=== PATIENT | male | born 1970 | race Caucasian/White ===

== ENCOUNTER 2019-08-17 07:09 | Outpatient (CLI) | payer OTHER, MEDICAID, SELFPAY ==
--- NOTE | ~2019-08-17 | CT_ITS ---
EXAMINATION: CT soft tissue neck chest w DATE: 08/17/2019 07:55 INDICATION: Small lymphocytic lymphoma. TECHNIQUE: Computed tomography (CT) of the neck was performed with 75 mL Omnipaque-350 intravenous co ntrast. Automated exposure control and iterative reconstruction technique were employed. The dose-tye gth product was 924.78 mGy-cm. COMPARISON: CT chest 02/06/2019, 10/07/16, PET/CT 10/13/2018 FINDINGS: NECK CT: There are no pathologically enlarged lymph nodes. There is plaque in the proximal internal c arotid arteries with 0% stenosis relative to normal distal artery lumen diameters. There is mild muco haritha thickening in the paranasal sinuses. There is extensive dental disease. There is mild cervical sp ondylosis. CHEST CT: There is mild emphysema. There is mild atelectasis bilaterally. No pleural effusion. The he art size is normal. No pericardial effusion. Again seen are 3 hyperenhancing masses in the liver lluvia uring up to 2.7 cm, stable from 02/06/19, likely benign. A right axillary lymph node measures 1.8 x 2. 3 cm that previously measured 3.2 x 1.6 cm. There is mild thoracic spondylosis. IMPRESSION: 1. Mildly enlarged right axillary lymph node with interval improvement, consistent with lymphoma. 2. Extensive dental disease. Reviewed, dictated and finalized at location A. R ADJUSTER IMPRESSION: 1. Mildly enlarged right axillary lymph node with interval improvement, consist ent with lymphoma. 2. Extensive dental disease.
== END 2019-08-17 07:10 | disposition home or self-care (01) ==
PROVIDERS: PCP Internal Medicine; Visit Provider Internal Medicine Hematology & Oncology
DX: C83.00 Small cell B-cell lymphoma, unspecified site (principal); K08.9 Disorder of teeth and supporting structures, unspecified
CPT/HCPCS: 70491; 71260; Q9967

== ENCOUNTER 2019-08-30 12:51 | Outpatient (CLI) | payer OTHER, MEDICAID, SELFPAY ==
[2019-08-30 13:12] LABS: Basophils Absolute Auto 0.2 K/mm3 (0.0-0.1); Basophils Percent Auto 0.7 % (0.2-1.2); Eosinophils Absolute Auto 0.2 K/mm3 (0-0.3); Eosinophils Percent Auto 0.8 % (0-4.4); Hematocrit 42.1 % (42.0-52.0); Hemoglobin 13.7 g/dL (14.0-18.0); Immature Granulocyte Absolute 0.04 K/mm3 (0.00-0.031); Immature Granulocyte Percent A 0.2 % (0-0.5); Lymphocytes Absolute Auto 19.06 K/mm3 (0.9-3.2); Lymphocytes Percent Auto 84.9 % (18.3-44.2); Mean Corpuscular HGB Conc 32.5 g/dl (32-36); Mean Corpuscular Hemoglobin 30.6 pg (26-34); Mean Platelet Volume 10.1 fl (7.4-10.4); Monocytes Absolute Auto 0.6 K/mm3 (0.1-0.6); Monocytes Percent Auto 2.4 % (2.6-8.5); Neutrophils Absolute Auto 2.5 K/mm3 (1.3-6.7); Platelet Count Result 153 k/mm3 (150-375); Red Blood Count 4.48 M/mm3 (4.6-6.20); Red Cell Distribution Width 14.3 % (11.5-14.5); White Blood Count 22.5 K/mm3 (4.5-10.0)
[2019-08-30 13:16] LABS: Blood Urea Nitrogen 23 mg/dL (8-26); Carbon Dioxide 29 mmol/L (22-30); Chloride 103 mmol/L (98-109); Estimated Glomerular Filt Rate 58; Glucose 76 mg/dL (70-105); Potassium 4.3 mmol/L (3.5-4.9); Sodium 141 mmol/L (138-146)
[2019-08-30 13:18] LABS: Atypical Lymphocytes Present; Platelet Estimate Adequate (Adequate)
[2019-08-30 16:56] LABS: Alanine Aminotransferase 12 U/L (4-50); Albumin Level 3.7 g/dL (3.5-5.1); Alkaline Phosphatase 64 U/L (38-126); Aspartate Amino Transferase 13 U/L (17-59); Bilirubin,Total 0.2 mg/dL (0.2-1.3); Blood Urea Nitrogen 24 mg/dL (9-20); Carbon Dioxide 29 mmol/L (22-30); Chloride 101 mmol/L (98-107); Estimated Glomerular Filt Rate > 60; Glucose 77 mg/dL (75-110); Lactate Dehydrogenase 307 U/L (313-618); Potassium 4.5 mmol/L (3.4-5.0); Sodium 140 mmol/L (137-145)
== END 2019-08-30 12:52 | disposition home or self-care (01) ==
LOC: ANHLAB 12:55
PROVIDERS: PCP Internal Medicine; Visit Provider Internal Medicine Hematology & Oncology
DX: C83.00 Small cell B-cell lymphoma, unspecified site (principal)
CPT/HCPCS: 36415; 80048; 80053; 83615; 85025

== ENCOUNTER 2019-12-29 11:13 | Outpatient (CLI) | payer OTHER, MEDICAID, SELFPAY ==
[2019-12-29 11:28] LABS: Basophils Percent Auto 0.1 % (0.2-1.2); Eosinophils Absolute Auto 0.2 K/mm3 (0-0.3); Eosinophils Percent Auto 0.4 % (0-4.4); Hematocrit 43.3 % (42.0-52.0); Hemoglobin 14.1 g/dL (14.0-18.0); Immature Granulocyte Absolute 0.08 K/mm3 (0.00-0.031); Immature Granulocyte Percent A 0.2 % (0-0.5); Lymphocytes Absolute Auto 39.79 K/mm3 (0.9-3.2); Lymphocytes Percent Auto 87.6 % (18.3-44.2); Mean Corpuscular HGB Conc 32.6 g/dl (32-36); Mean Corpuscular Hemoglobin 31.1 pg (26-34); Mean Corpuscular Volume 95.4 fl (80-100); Mean Platelet Volume 10.6 fl (7.4-10.4); Monocytes Absolute Auto 0.6 K/mm3 (0.1-0.6); Monocytes Percent Auto 1.3 % (2.6-8.5); Neutrophils Absolute Auto 4.8 K/mm3 (1.3-6.7); Neutrophils Percent Auto 10.4 % (45.5-73.1); Platelet Count Result 141 k/mm3 (150-375); Red Blood Count 4.54 M/mm3 (4.6-6.20); White Blood Count 45.4 K/mm3 (4.5-10.0)
[2019-12-29 11:35] LABS: Atypical Lymphocytes Present
[2019-12-29 11:37] LABS: Blood Urea Nitrogen 21 mg/dL (8-26); Carbon Dioxide 23 mmol/L (22-30); Chloride 103 mmol/L (98-109); Estimated Glomerular Filt Rate > 60; Glucose 102 mg/dL (70-105); Potassium 4.1 mmol/L (3.5-4.9); Sodium 137 mmol/L (138-146)
[2019-12-29 16:52] LABS: Alanine Aminotransferase 13 U/L (4-50); Albumin Level 3.8 g/dL (3.5-5.1); Alkaline Phosphatase 67 U/L (38-126); Aspartate Amino Transferase 17 U/L (17-59); Bilirubin,Total 0.4 mg/dL (0.2-1.3); Blood Urea Nitrogen 22 mg/dL (9-20); Calcium 8.8 mg/dL (8.4-10.2); Carbon Dioxide 25 mmol/L (22-30); Chloride 104 mmol/L (98-107); Estimated Glomerular Filt Rate > 60; Glucose 106 mg/dL (75-110); Lactate Dehydrogenase 341 U/L (313-618); Potassium 4.3 mmol/L (3.4-5.0); Sodium 135 mmol/L (137-145)
== END 2019-12-29 11:14 | disposition home or self-care (01) ==
PROVIDERS: PCP Internal Medicine; Visit Provider Internal Medicine Hematology & Oncology
DX: C83.00 Small cell B-cell lymphoma, unspecified site (principal)
CPT/HCPCS: 36415; 80048; 80053; 83615; 85025

== ENCOUNTER 2020-01-13 14:47 | Emergency (ER) | payer OTHER, MEDICAID, SELFPAY ==
[2020-01-13 15:09] VITALS: BP 125/75; PULSE 82; RESP 17; TEMP 36.8; O2SAT 99
[2020-01-13 15:24] LABS: Add Urine Microscopic? YES; Appearance Urine Cloudy (Clear); Bilirubin Urine 3+ (Negative); Blood Urine 3+ (Negative); Glucose Urine UA Negative (Negative); Ketones Urine 1+ (Negative); Leukocyte Esterase Ur 2+ LEU/UL (Negative); Nitrate Urine Positive (Negative); Protein Urine 3+ (Negative); Specific Grav Ur 1.025 (1.010-1.020); pH Urine 6.5 (5.0-8.0)
--- NOTE | 2020-01-13 15:34 | ED.GENADULT ---
HPI - General Adult General Chief complaint: Urogenital-Male Stated complaint: blood in urine History of Present Illness HPI narrative: Taras is a 49M with a PMH of MS, non-hodgkins lymphoma and HTN that presented to clinic with gross hematuria that began this morning. He denies dysuria, flank pain, fevers, chills, N/V/D and SOB. Related Data Home Medications Medication Instructions Recorded Confirmed allopurinol 300 mg PO DAILY 01/13/20 01/13/20 ibrutinib [Imbruvica] 420 mg PO DAILY 01/13/20 01/13/20 lisinopril-hydrochlorothiazide 1 tablet PO DAILY 01/13/20 01/13/20 sildenafil (pulm.hypertension) 20 mg PO DAILY 01/13/20 01/13/20 Allergies Allergy/AdvReac Type Severity Reaction Status Date / Time Penicillins Allergy Intermediate Verified 11/04/17 15:33 Review of Systems Constitutional: Constitutional: Denies chills, Denies fever(s) and Denies weakness Eyes: Eyes: Reports no additional eye complaints ENT: Reports system reviewed and no additional complaints, except as documented Cardiovascular: Cardiovascular: Reports no additional cardiovascular complaints Respiratory: Respiratory: Reports no additional respiratory complaints Gastrointestinal: Gastrointestinal: Reports no additional gastrointestinal complaints Genitourinary: Genitourinary: Reports as per HPI Musculoskeletal: Musculoskeletal: Reports no additional musculoskeletal complaints Integumentary/Breasts: Skin/Breast: Reports system reviewed and no additional complaints, except as docu Neurologic: Reports system reviewed and no additional complaints, except as documented Psychiatric: Psychiatric: Reports no additional psychiatric complaints Endocrine: Endocrine: Reports no additional endocrine complaints Hematologic/Lymphatic: Hematologic/Lymphatic: Reports no additional hematologic/lymphatic complaints Allergic/Immunologic: Allergic/Immunologic: Reports no additional allergic/immunologic complaints [facility] Social History Social History Smoking status: Current every day smoker Exam Const: General: no acute distress and alert Orientation/consciousness: patient oriented x3 Limitations: No altered mental status HENMT: Head: normal to inspection Eyes: Pupils: Equal, round and reactive pupils present Neck: Neck: normal visual inspection Chest: Chest palpation & inspection: normal inspection of the chest Resp: Effort & Inspection: normal respiratory effort, not labored and not tachypneic Other: Speaks in complete sentences Cardio: Rate: regular rate Other: No lower extremity edema GI: GI Palp: Yes Soft to palpation, No Tenderness to palpation present (GI) and No Guarding due to palpation present (GI) Auscultation: normal bowel sounds : General: Yes bladder normal to palpation and Yes no CVA tenderness Male General Exam: No Genital lesions present Penis: Yes normal penis Scrotum: no scrotal swelling Other: Left inguinal hernia present Back/Spine/Pelvis: Back: no CVA tenderness Skin: General skin exam: normal color Rashes: no rashes Neuro: General: patient oriented x3 and moves all extremities Extrem: General: normal to inspection Psych: Mental Status: mental status grossly normal Course Course Emergency Course: Taras was seen and evaluated. Ordered labs as below. Labs significant for WBC of 39.5 (of note this is the lowest it has been in quite some time d/t his lymphoma), mild thrombycytopenia with Plt of 143, normal coags, normal chemistries, but UA showed 3+blood, nitrates, leukocyte esterase, and urine bacteria. He was given a dose of the Levaquin in the ED as he has a penicillin allergy. He was discharged with a script for ciprofloxacin. Vital Signs Vital signs: Vital Signs Temperature 36.8 C 01/13/20 15:09 Pulse Rate 82 01/13/20 15:09 Respiratory Rate 17 01/13/20 15:09 Blood Pressure 125/75 01/13/20 15:09 Pulse Oximetry 99 06
[2020-01-13 15:36] LABS: Hematocrit 41.3 % (40.0-54.0); Hemoglobin 13.8 g/dL (14.0-18.0); Mean Corpuscular HGB Conc 33.4 g/dL (32.0-36.0); Mean Corpuscular Hemoglobin 31.4 pg (27.0-31.0); Mean Corpuscular Volume 93.9 fL (78.0-102.0); Mean Platelet Volume 10.3 fl (8.7-11.0); Platelet Count Result 143 K/mm3 (150-420); Red Cell Distribution Width 13.8 % (11.6-14.4)
[2020-01-13 15:41] LABS: RBC Urine >75 /hpf (0-2); Squamous Epithelial Cell Urine Unable to determine /hpf (Few); WBC Urine Unable to determine /hpf (0-3)
[2020-01-13 15:42] LABS: Bacteria Urine 4+ /hpf
[2020-01-13 15:43] LABS: Color Urine Brown (Yellow)
[2020-01-13 15:46] LABS: Anion Gap 9.9 mmol/L (7-16); Blood Urea Nitrogen 19 mg/dL (7-18); Calcium 8.6 mg/dL (8.5-10.1); Carbon Dioxide 27 mmol/L (21-32); Chloride 103 mmol/L (98-108); Estimated Glomerular Filt Rate 59; Glucose 77 mg/dL (70-99); Osmolality Calculated 283 mOsm/kg (285-295); Potassium 3.9 mmol/L (3.5-5.1); Sodium 136 mmol/L (136-145)
[2020-01-13 15:47] LABS: INR 1.1; Prothrombin Time 10.9 Seconds (9.64-11.0); White Blood Count 39.5 K/mm3 (4.8-10.8)
[2020-01-13 15:55] LABS: Total Cells Counted 100
[2020-01-13 15:59] LABS: Band Neutrophils Percent 0 % (0-6); Lymphocytes Absolute Manual 33.97 K/mm3 (1.1-4.5); Lymphocytes Percent Manual 86 % (18-44); Monocytes Absolute Manual 1.58 K/mm3 (0.1-0.90); Monocytes Percent Manual 4 % (3-9); Neutrophils Absolute Manual 3.95 K/mm3 (1.3-6.7); Neutrophils Percent Manual 10 % (46-73); Platelet Estimate Adequate (Adequate)
[2020-01-13 16:00] LABS: Atypical Lymphocytes Present
[2020-01-13 17:50] VITALS: BP 127/80; PULSE 67; O2SAT 99
== END 2020-01-13 17:55 | disposition home or self-care (01) ==
PROVIDERS: Emergency Provider Family Medicine; PCP Internal Medicine
DX: N39.0 Urinary tract infection, site not specified (principal)
CPT/HCPCS: 36415; 80048; 81001; 85025; 85610; 87086; 96365; 99283; 99284; J1956

== ENCOUNTER 2020-03-18 19:58 | Emergency (ER) | payer OTHER, MEDICAID, SELFPAY ==
--- NOTE | 2020-03-18 20:01 | ED.SKABFB ---
HPI - Skin/Abscess/Foreign Bdy General Chief complaint: Skin/Abscess/Foreign Body Stated complaint: lump on R leg Time Seen by Provider: 03/18/20 20:01 Source: patient and RN notes reviewed Mode of arrival: ambulatory Limitations: no limitations History of Present Illness complaint: abscess/boil Onset (ago): hour(s) (12) Location: RLE (medial thigh) Severity: moderate Quality: aching and constant Pain Consistency: constant Relieving factors: none Exacerbating factors: movement Context: none Associated symptoms: denies other symptoms Treatments prior to arrival: none Related Data Home Medications Medication Instructions Recorded Confirmed allopurinol 300 mg PO DAILY 01/13/20 01/13/20 ibrutinib [Imbruvica] 420 mg PO DAILY 01/13/20 01/13/20 lisinopril-hydrochlorothiazide 1 tablet PO DAILY 01/13/20 01/13/20 sildenafil (pulm.hypertension) 20 mg PO DAILY 01/13/20 01/13/20 Allergies Allergy/AdvReac Type Severity Reaction Status Date / Time Penicillins Allergy Intermediate Verified 11/04/17 15:33 Review of Systems Review of Systems: All systems reviewed & are unremarkable except as noted in HPI and below PMFSH Past Medical History Medical History (Updated 03/18/20 @ 20:28 by Chi Murphy MD) Gout Hypertension Lymphoma Surgical History Surgical History (Updated 03/18/20 @ 20:09 by Chi Murphy MD) History of removal of Port-a-Cath Social History Social History (Updated 03/18/20 @ 20:31 by Chi Murphy MD) Smoking status: Former smoker Exam Const: General: healthy appearing and no acute distress Nutritional Appearance: well nourished Orientation/consciousness: patient oriented x3 HENMT: Head: normal to inspection Ears: external ears normal General nose exam: Normal external nose present Face and sinus: normal facial exam Mouth: Yes lip normal and Yes moist mucous membranes Eyes: Conjunctivae: conjunctivae normal Pupils: Equal, round and reactive pupils present EOM: EOMs intact bilaterally Neck: Neck: normal visual inspection Resp: Effort & Inspection: normal respiratory effort Auscultation: clear to auscultation bilaterally Cardio: Rate: regular rate Rhythm: regular rhythm GI: Auscultation: normal bowel sounds Back/Spine/Pelvis: Cervical Spine: cervical ROM normal Thoracic/Lumbar Spine: thoraco-lumbar ROM normal Skin: Lesions: lesion noted (distal medial thigh) nodule right mid upper leg size (3 cm), color with an erythematous base, consistency firm and tender Neuro: General: patient oriented x3, moves all extremities and no focal motor deficits Speech: normal speech Gait exam (Neuro): Normal gait present Extrem: General: no pedal edema Psych: Appearance: grossly normal and well kempt Mental Status: mental status grossly normal Affect: normal affect Attitude: cooperative Thought content: Yes Normal thought content present Course Course Emergency Course: I explained to the patient that the area that is hard and indurated is not organized enough for incision and drainage. Also felt there could be a a spider bite and just indurated from the venom. I will go ahead start him on some antibiotics for possible abscess. I explained that if this truly was a brown recluse spider bite nothing I do will stop its normal progression. If things become worse he should follow-up with his primary care physician. Vital Signs Vital signs: Vital Signs Temperature 37.0 C 03/18/20 20:10 Pulse Rate 87 03/18/20 20:10 Respiratory Rate 16 03/18/20 20:10 Blood Pressure 130/69 03/18/20 20:10 Pulse Oximetry 99 03/18/20 20:10 Temperature 37.0 C 03/18/20 20:10 Pulse Rate 87 03/18/20 20:10 Respiratory Rate 16 03/18/20 20:10 Blood Pressure 130/69 03/18/20 20:10 Pulse Oximetry 99 03/18/20 20:10 Discharge Plan Discharge Clinical Impression: Abscess Patient Disposition: Home, Self-Care Condition: Stable Instructions: Abscess (ED) Presc
[2020-03-18 20:10] VITALS: BP 130/69; PULSE 87; RESP 16; TEMP 37; O2SAT 99
== END 2020-03-18 20:35 | disposition home or self-care (01) ==
PROVIDERS: Emergency Provider Emergency Medicine; PCP Internal Medicine
DX: L02.415 Cutaneous abscess of right lower limb (principal)
CPT/HCPCS: 99283; A9270

== ENCOUNTER 2020-03-21 17:27 | Emergency (ER) | payer OTHER, MEDICAID, SELFPAY ==
[2020-03-21] VITALS (20 sets, daily range): BP systolic 144–171; BP diastolic 65–78; PULSE 84–109; RESP 14–26; TEMP 37.6; O2SAT 91–100
--- NOTE | ~2020-03-21 | US_ITS ---
US venous doppler LE RT DATE: 03/21/2020 18:27 INDICATION: Right leg swelling, redness, pain, warmth TECHNIQUE: Real-time and color flow imaging and Doppler analysis of the veins of the right lower extr emity COMPARISON: None FINDINGS: There is thrombus involving a superficial vein in the medial thigh area in an area of eryth des. The right greater saphenous vein is patent. There is spontaneous and phasic flow and normal augmentation and color flow signal and normal delbert kerri of the deep veins of the right lower extremity. There is a 13 x 28.5 mm lymph node in the right groin area. IMPRESSION: No deep venous thrombosis of right lower extremity Focal thrombosis involving a superficial vein in the medial thigh Reviewed, dictated and finalized at [facility]. Reviewed, dictated and finalized at location A.
--- NOTE | 2020-03-21 17:52 | ED.EXTPRO ---
HPI - Extremity Problem General Chief complaint: Extremity Problem,Nontraumatic <KAELYN Mason Last Filed: 03/21/20 19:54> Stated complaint: leg infection <KAELYN Mason Last Filed: 03/21/20 19:54> Time Seen by Provider: 03/21/20 17:48 <KAELYN Mason Last Filed: 03/21/20 19:54> Source: patient and family <KAELYN Mason Last Filed: 03/21/20 19:54> Mode of arrival: ambulatory <KAELYN Mason Last Filed: 03/21/20 19:54> Limitations: no limitations <KAELYN Mason Last Filed: 03/21/20 19:54> History of Present Illness HPI Narrative: Patient is a 50-year-old male who presents to emergency department for evaluation of red tender swollen right leg from the medial aspect of the leg just above the knee up into the groin patient notes the symptoms began Wednesday was seen at an outside hospital on Wednesday began Bactrim antibiotic on Wednesday and has had progressive redness and swelling since. Patient denies fever chills vomiting diarrhea or similar occurrence in the past. Patient on arrival to emergency department in no distress noting moderate to severe pain worse with activity and movement. <KAELYN Mason Last Filed: 03/21/20 19:54> Related Data Home medications: Home Medications Medication Instructions Recorded Confirmed allopurinol 300 mg PO DAILY 01/13/20 01/13/20 ibrutinib [Imbruvica] 420 mg PO DAILY 01/13/20 01/13/20 lisinopril-hydrochlorothiazide 1 tablet PO DAILY 01/13/20 01/13/20 sildenafil (pulm.hypertension) 20 mg PO DAILY 01/13/20 01/13/20 <KAELYN Mason Last Filed: 03/21/20 19:54> Allergies/Adverse reactions: Allergies Allergy/AdvReac Type Severity Reaction Status Date / Time Penicillins Allergy Intermediate Hives Verified 03/21/20 17:49 <KAELYN Mason Last Filed: 03/21/20 19:54> Review of Systems Review of Systems: All systems reviewed & are unremarkable except as noted in HPI and below <Jer Trinidad PA-C - Last Filed: 03/21/20 19:54> PMFSH Past Medical History Medical History: Medical History Gout Hypertension Lymphoma <Jer Trinidad PA-C - Last Filed: 03/21/20 19:54> Surgical History Surgical History: Surgical History History of removal of Port-a-Cath <Jer Trinidad PA-C - Last Filed: 03/21/20 19:54> Social History Social History: Social History Smoking status: Former smoker <Jer Trinidad PA-C - Last Filed: 03/21/20 19:54> Exam Narrative: Exam Narrative: GENERAL: Well-appearing, well-nourished, and in no acute distress. HEAD: Normocephalic, atraumatic. EYES: PERRLA and EOMI. ENT: Nares clear, no rhinorrhea or epistaxis. Mucous membranes moist. CHEST: Clear to auscultation. No respiratory distress. No wheezes rales or rhonchi HEART: Regular rate and rhythm. No murmur heard. Normal peripheral pulses. ABDOMEN: Soft, nontender, nondistended EXTREMITIES: Normal range of motion. No edema. Patient with red tender swollen firm area extending from the medial aspect of the distal thigh up to the proximal thigh on the medial aspect of the leg noncircumferential is warm to touch and is erythematous SKIN: Warm, dry, no rash. NEURO: No focal deficits. Alert and oriented x3. Neurovascularly intact. Capillary refill less than 2 seconds PSYCH: Normal mood and affect. <Jer Trinidad PA-C - Last Filed: 03/21/20 19:54> Course Course Emergency Course: Patient in the room aware of case findings treatment plan and diagnosis as well as discussion with Dr. Sanchez cardiology interventionalists who will follow the patient <Jer Trinidad PA-C - Last Filed: 03/21/20 19:54> Consultations Consultation #1: Discussed case with cardiology int
[2020-03-21 18:03] LABS: Hematocrit 45.2 % (42.0-52.0); Hemoglobin 15.1 g/dL (14.0-18.0); Mean Corpuscular HGB Conc 33.4 g/dl (32-36); Mean Corpuscular Hemoglobin 31.3 pg (26-34); Mean Corpuscular Volume 93.8 fl (80-100); Mean Platelet Volume 10.8 fl (7.4-10.4); Platelet Count Result 157 k/mm3 (150-375); Red Blood Count 4.82 M/mm3 (4.6-6.20); Red Cell Distribution Width 13.7 % (11.5-14.5); White Blood Count 35.2 K/mm3 (4.5-10.0)
[2020-03-21 18:12] LABS: Atypical Lymphocytes Present; INR 1.1; Lymphocytes Absolute Manual 23.93 K/mm3 (1.1-4.5); Monocytes Percent Manual 2 % (3-9); Neutrophils Percent Manual 30 % (46-73); Platelet Estimate Adequate (Adequate); Prothrombin Time 13.8 Seconds (11.1-14.7); Total Cells Counted 100
[2020-03-21 18:14] LABS: Lactic Acid Reflex 1.1 mmol/L (0.7-2.1)
[2020-03-21] MEDS: LACTATED RINGERS 1,000 ML 999 ML IV CONT (18:32)
[2020-03-21 18:47] LABS: Alanine Aminotransferase 10 U/L (4-50); Alkaline Phosphatase 75 U/L (38-126); Anion Gap 8 mmol/L (8-16); Aspartate Amino Transferase 13 U/L (17-59); Bilirubin,Total 0.8 mg/dL (0.2-1.3); Blood Urea Nitrogen 16 mg/dL (9-20); Calcium 8.8 mg/dL (8.4-10.2); Carbon Dioxide 24 mmol/L (22-30); Chloride 101 mmol/L (98-107); Estimated Glomerular Filt Rate 58; Glucose 118 mg/dL (75-110); Potassium 4.1 mmol/L (3.4-5.0); Sodium 133 mmol/L (137-145)
[2020-03-21 19:00] LABS: CRP 18.7 mg/dL (<1.0)
[2020-03-21] MEDS: IBUPROFEN IV 800 MG/200 ML 800 MG/200 ML BAG 400 MG IVPB (20:07)
== END 2020-03-21 21:06 | disposition home or self-care (01) ==
PROVIDERS: Emergency Medicine Emergency Medical Services; Emergency Provider Emergency Medicine; PCP Internal Medicine
DX: I80.01 Phlebitis and thrombophlebitis of superficial vessels of right lower extremity (principal); M10.9 Gout, unspecified; I10 Essential (primary) hypertension; Z87.891 Personal history of nicotine dependence; Z85.72 Personal history of non-Hodgkin lymphomas
CPT/HCPCS: 36415; 80053; 83605; 85025; 85610; 85730; 86140; 87040; 93971; 96361; 96365; 99284; A9270; J1741; J7120

== ENCOUNTER 2020-03-29 11:19 | Outpatient (CLI) | payer OTHER, MEDICAID, SELFPAY ==
[2020-03-29 11:35] LABS: Basophils Absolute Auto 0.1 K/mm3 (0.0-0.1); Basophils Percent Auto 0.1 % (0.2-1.2); Eosinophils Absolute Auto 0.2 K/mm3 (0-0.3); Eosinophils Percent Auto 0.5 % (0-4.4); Hematocrit 41.3 % (42.0-52.0); Hemoglobin 13.5 g/dL (14.0-18.0); Immature Granulocyte Percent A 0.5 % (0-0.5); Lymphocytes Absolute Auto 36.38 K/mm3 (0.9-3.2); Lymphocytes Percent Auto 83.1 % (18.3-44.2); Mean Corpuscular HGB Conc 32.7 g/dl (32-36); Mean Corpuscular Hemoglobin 30.8 pg (26-34); Mean Corpuscular Volume 94.1 fl (80-100); Monocytes Absolute Auto 0.6 K/mm3 (0.1-0.6); Monocytes Percent Auto 1.4 % (2.6-8.5); Neutrophils Absolute Auto 6.3 K/mm3 (1.3-6.7); Neutrophils Percent Auto 14.4 % (45.5-73.1); Nucleated Red Blood Cells Perc 0.1 % (0.0-0.2); Platelet Count Result 221 k/mm3 (150-375); Red Blood Count 4.39 M/mm3 (4.6-6.20); Red Cell Distribution Width 13.8 % (11.5-14.5); White Blood Count 43.8 K/mm3 (4.5-10.0)
[2020-03-29 11:39] LABS: Blood Urea Nitrogen 23 mg/dL (8-26); Carbon Dioxide 24 mmol/L (22-30); Chloride 104 mmol/L (98-109); Estimated Glomerular Filt Rate 58; Glucose 92 mg/dL (70-105); Potassium 4.1 mmol/L (3.5-4.9); Sodium 139 mmol/L (138-146)
[2020-03-29 11:42] LABS: Atypical Lymphocytes Present; Platelet Estimate Adequate (Adequate)
[2020-03-29 16:31] LABS: Alanine Aminotransferase 13 U/L (4-50); Albumin Level 3.9 g/dL (3.5-5.1); Alkaline Phosphatase 73 U/L (38-126); Anion Gap 8 mmol/L (8-16); Aspartate Amino Transferase 16 U/L (17-59); Bilirubin,Total 0.3 mg/dL (0.2-1.3); Blood Urea Nitrogen 23 mg/dL (9-20); Carbon Dioxide 24 mmol/L (22-30); Chloride 105 mmol/L (98-107); Estimated Glomerular Filt Rate > 60; Glucose 93 mg/dL (75-110); Lactate Dehydrogenase 323 U/L (313-618); Potassium 4.3 mmol/L (3.4-5.0); Sodium 137 mmol/L (137-145)
== END 2020-03-29 11:20 | disposition home or self-care (01) ==
LOC: ANHLAB 11:21
PROVIDERS: PCP Internal Medicine; Visit Provider Internal Medicine Hematology & Oncology
DX: C83.00 Small cell B-cell lymphoma, unspecified site (principal)
CPT/HCPCS: 36415; 80048; 80053; 83615; 85025

== ENCOUNTER 2020-06-28 11:09 | Outpatient (CLI) | payer OTHER, MEDICAID, SELFPAY ==
[2020-06-28 11:24] LABS: Basophils Absolute Auto 0.2 K/mm3 (0.0-0.1); Basophils Percent Auto 0.6 % (0.2-1.2); Eosinophils Absolute Auto 0.2 K/mm3 (0-0.3); Eosinophils Percent Auto 0.7 % (0-4.4); Hematocrit 44.6 % (42.0-52.0); Hemoglobin 14.7 g/dL (14.0-18.0); Immature Granulocyte Absolute 0.04 K/mm3 (0.00-0.031); Immature Granulocyte Percent A 0.1 % (0-0.5); Lymphocytes Absolute Auto 23.74 K/mm3 (0.9-3.2); Lymphocytes Percent Auto 81.8 % (18.3-44.2); Mean Corpuscular Hemoglobin 30.8 pg (26-34); Mean Corpuscular Volume 93.5 fl (80-100); Mean Platelet Volume 10.7 fl (7.4-10.4); Monocytes Absolute Auto 0.6 K/mm3 (0.1-0.6); Neutrophils Absolute Auto 4.3 K/mm3 (1.3-6.7); Neutrophils Percent Auto 14.8 % (45.5-73.1); Platelet Count Result 167 k/mm3 (150-375); Red Blood Count 4.77 M/mm3 (4.6-6.20); Red Cell Distribution Width 13.6 % (11.5-14.5)
[2020-06-28 12:45] LABS: Potassium 4.1 mmol/L (3.4-5.0)
[2020-06-28 12:48] LABS: Alanine Aminotransferase 11 U/L (4-50); Albumin Level 3.7 g/dL (3.5-5.1); Alkaline Phosphatase 68 U/L (38-126); Anion Gap 5 mmol/L (8-16); Aspartate Amino Transferase 16 U/L (17-59); Bilirubin,Total 0.4 mg/dL (0.2-1.3); Blood Urea Nitrogen 17 mg/dL (9-20); Calcium 9.2 mg/dL (8.4-10.2); Carbon Dioxide 31 mmol/L (22-30); Chloride 102 mmol/L (98-107); Estimated Glomerular Filt Rate > 60; Glucose 95 mg/dL (75-110); Lactate Dehydrogenase 330 U/L (313-618); Sodium 138 mmol/L (137-145)
[2020-06-28 12:56] LABS: Blood Urea Nitrogen 17 mg/dL (8-26); Carbon Dioxide 28 mmol/L (22-30); Chloride 102 mmol/L (98-109); Potassium 3.9 mmol/L (3.5-4.9); Sodium 139 mmol/L (138-146)
[2020-06-28 12:57] LABS: Estimated Glomerular Filt Rate > 60; Glucose 90 mg/dL (70-105)
== END 2020-06-28 11:10 | disposition home or self-care (01) ==
LOC: ANHLAB 11:12
PROVIDERS: PCP Internal Medicine; Visit Provider Internal Medicine Hematology & Oncology
DX: C83.00 Small cell B-cell lymphoma, unspecified site (principal)
CPT/HCPCS: 36415; 80048; 80053; 83615; 85025

== ENCOUNTER 2020-07-04 09:33 | Outpatient (CLI) | payer OTHER, MEDICAID, SELFPAY ==
--- NOTE | ~2020-07-04 | XR_ITS ---
LUMBAR SPINE INDICATION: Acute low back pain for 3 days TECHNIQUE: 3 views lumbar spine COMPARISON: None FINDINGS: No fracture, subluxation or dislocation. No evidence for spondylolysis or spondylolisthesi s. Vertebral bodies and disk spaces are preserved. IMPRESSION: 1: No significant abnormality of the lumbar spine identified. Reviewed, dictated and finalized at location A. SPORTATION MAINTENANCE SPECIALIST
== END 2020-07-04 09:34 | disposition home or self-care (01) ==
LOC: CHSIMG 09:36
PROVIDERS: PCP Internal Medicine; Visit Provider Internal Medicine
DX: M54.5 Low back pain (principal)
CPT/HCPCS: 72100

== ENCOUNTER 2020-07-06 08:58 | Emergency (ER) | payer OTHER, MEDICAID, SELFPAY ==
[2020-07-06 09:21] VITALS: BP 155/84; PULSE 72; RESP 16; TEMP 37; O2SAT 95
--- NOTE | 2020-07-06 09:22 | ED.GENADULT ---
HPI - General Adult General Chief complaint: Urogenital-Male Stated complaint: low back pain r side, R leg pain when urinating Source: patient Mode of arrival: ambulatory Limitations: no limitations History of Present Illness HPI narrative: Taras is a 50M with a PMH of MS, lymphoma, HTN and gout that presented to the ER with back pain. It started while urinating 6 days ago. It is a 5/10 sharp low back pain that shoots down his right leg. It is worse with flexion better with rest. He saw Dr. Krueger, his PCP who did Xrays and gave Flexeril, methylprednisolone and ketoralac which are not helping with the pain. No trauma, numbness, tingling, paralysis, weakness or loss of bowel or bladder control. No fevers or chills. No IV drug use. Related Data Home Medications Medication Instructions Recorded Confirmed allopurinol 300 mg PO DAILY 01/13/20 07/06/20 ibrutinib [Imbruvica] 420 mg PO DAILY 01/13/20 07/06/20 lisinopril-hydrochlorothiazide 1 tablet PO DAILY 01/13/20 07/06/20 ketorolac See Rx Instructions .ROUTE .COMPLEX 07/06/20 07/06/20 methylprednisolone [Medrol (Yair)] See Rx Instructions .ROUTE .COMPLEX 07/06/20 07/06/20 Allergies Allergy/AdvReac Type Severity Reaction Status Date / Time Penicillins Allergy Intermediate Hives Verified 03/21/20 17:49 Review of Systems Review of Systems: All systems reviewed & are unremarkable except as noted in HPI and below PMFSH Past Medical History Medical History (Updated 07/06/20 @ 09:35 by Jose Ramon Queen DO) Gout Hypertension Lymphoma Surgical History Surgical History History of removal of Port-a-Cath Social History Social History Smoking status: Former smoker Gender identity (if verbalized by the patient): Male Sexual Orientation (if Verbalized by the Patient): Straight or Heterosexual Exam Const: General: no acute distress and alert Orientation/consciousness: patient oriented x3 Limitations: No altered mental status HENMT: Head: normal to inspection Other: atraumatic Eyes: Conjunctivae: conjunctivae normal Pupils: Equal, round and reactive pupils present Neck: Neck: normal visual inspection Chest: Chest palpation & inspection: normal inspection of the chest Resp: Effort & Inspection: normal respiratory effort Auscultation: clear to auscultation bilaterally Cardio: Rate: regular rate Rhythm: regular rhythm GI: GI Palp: Yes Soft to palpation, No Tenderness to palpation present (GI) and No Guarding due to palpation present (GI) Back/Spine/Pelvis: Back: no CVA tenderness Skin: General skin exam: normal color Rashes: no rashes Neuro: General: patient oriented x3 and moves all extremities Other: 5/5 strength in the lower extremities in all the major joints in all planes of motion. Sensation intact in all dermatomes of the lower extremities. Extrem: General: normal to inspection and no edema Other: +straight leg test on the right with pain below the knee. Psych: Appearance: grossly normal Mental Status: mental status grossly normal Thought content: Yes Normal thought content present Course Course Emergency Course: Taras was evaluated. He refused pain medications. UA was sent off. Given he had no trauma, no loss of bowel/bladder control, no sensory deficits, and no strength deficits Cauda Equina is unlikely. Given the history and exam he most likely has a herniated disc. He was discharged to f/u with his PCP. He was told to return for any red flag symptoms. Vital Signs Vital signs: Vital Signs Temperature 98.6 F 07/06/20 09:21 Pulse Rate 72 07/06/20 09:21 Respiratory Rate 16 07/06/20 09:21 Blood Pressure 155/84 H 07/06/20 09:21 Pulse Oximetry 95 07/06/20 09:21 Temperature 98.6 F 07/06/20 09:21 Pulse Rate 72 07/06/20 09:21 Respiratory Rate 16 07/06/20 09:21 Blood Pressure 155/84 H 07/06/20 09:21
[2020-07-06 09:31] LABS: Add Urine Microscopic? YES; Appearance Urine Clear (Clear); Bilirubin Urine Negative (Negative); Blood Urine 1+ (Negative); Color Urine Yellow (Yellow); Glucose Urine UA Negative (Negative); Ketones Urine Negative (Negative); Leukocyte Esterase Ur Negative (Negative); Nitrate Urine Negative (Negative); Protein Urine Negative (Negative); Specific Grav Ur >= 1.030 (1.010-1.020); Urobilinogen Urine 0.2 mg/dL (0.2-1.0)
[2020-07-06 09:36] LABS: Squamous Epithelial Cell Urine Rare /hpf (Few); WBC Urine None seen /hpf (0-3)
[2020-07-06 09:37] LABS: Bacteria Urine Trace /hpf; Mucus Urine Few /lpf
[2020-07-06 09:58] VITALS: BP 149/88; PULSE 88; RESP 18; TEMP 36.4; O2SAT 94
== END 2020-07-06 09:59 | disposition home or self-care (01) ==
PROVIDERS: Emergency Provider Family Medicine; PCP Internal Medicine
DX: M54.5 Low back pain (principal); M54.10 Radiculopathy, site unspecified
CPT/HCPCS: 81001; 99282; 99283

== ENCOUNTER 2020-07-09 11:39 | Outpatient (CLI) | payer OTHER, MEDICAID, SELFPAY ==
--- NOTE | ~2020-07-09 | CT_ITS ---
EXAMINATION: CT abdomen pelvis wo con EXAM DATE: 07/09/2020 12:01 INDICATION: Painful Hematuria painful urination and micro hematuria, hx non Hodgkin's lymphoma. TECHNIQUE: Spiral CT of the abdomen and pelvis was performed without contrast. Axial, coronal and sag ittal images were reviewed. The dose-length product (DLP) for this examination was 315.37 mGy-cm. T he exposure was tailored according to patient size (auto mA exposure control), and iterative reconstr uction (ASIR) was used as additional dose reduction technique. There is no prior study for compariso n. FINDINGS: There is a moderate-sized left inguinal hernia containing a portion of the bladder. There i s no nephrolithiasis or hydronephrosis. The prostate is unremarkable. The bladder is unremarkable. The liver, spleen, adrenal glands and pancreas are unremarkable. Gallbladder is unremarkable. No biliary obstruction. There is no retroperitoneal or pelvic lymphadenopathy. There is mild scattere d arteriosclerotic disease. The appendix is normal. The stomach and small bowel are unremarkable. There is expected amount of c olonic stool. No free intraperitoneal gas. The heart is normal in size. There are no pericardial or pleural effusions. The lung bases are unremarkable. There are no osteoblastic or osteolytic les ions identified. IMPRESSION: 1. Moderate-sized left inguinal hernia following portion of bladder inside. Consider this as possibl e etiology for patient's symptoms. 2. No abdominal or pelvic lymphadenopathy. Reviewed, dictated and finalized at location B. EMENTATION SPECIALIST IMPRESSION: 1. Moderate-sized left inguinal hernia following portion of bladder inside. Co nsider this as possible etiology for patient's symptoms. 2. No abdominal or pelvic lymphadenopathy.
== END 2020-07-09 11:40 | disposition home or self-care (01) ==
PROVIDERS: PCP Internal Medicine; Visit Provider Internal Medicine
DX: R31.9 Hematuria, unspecified (principal)
CPT/HCPCS: 74176

== ENCOUNTER 2020-09-27 09:55 | Outpatient (CLI) | payer OTHER, MEDICAID, SELFPAY | END 2020-09-27 09:56 | disposition home or self-care (01) | LOC: CHSLAB 09:57 | PROVIDERS: PCP Nurse Practitioner Family; Visit Provider Nurse Practitioner Family | DX: J02.9 Acute pharyngitis, unspecified (principal) | CPT/HCPCS: 87880 ==

== ENCOUNTER 2020-11-08 10:38 | Outpatient (CLI) | payer OTHER, MEDICAID, SELFPAY ==
[2020-11-08 11:09] LABS: Basophils Absolute Auto 0.2 K/mm3 (0.0-0.1); Basophils Percent Auto 0.5 % (0.2-1.2); Eosinophils Absolute Auto 0.2 K/mm3 (0-0.3); Eosinophils Percent Auto 0.7 % (0-4.4); Hematocrit 47.9 % (42.0-52.0); Hemoglobin 15.7 g/dL (14.0-18.0); Immature Granulocyte Absolute 0.08 K/mm3 (0.00-0.031); Immature Granulocyte Percent A 0.2 % (0-0.5); Lymphocytes Absolute Auto 25.52 K/mm3 (0.9-3.2); Lymphocytes Percent Auto 77.8 % (18.3-44.2); Mean Corpuscular HGB Conc 32.8 g/dl (32-36); Mean Corpuscular Hemoglobin 30.8 pg (26-34); Mean Corpuscular Volume 94.1 fl (80-100); Mean Platelet Volume 10.9 fl (7.4-10.4); Monocytes Absolute Auto 0.7 K/mm3 (0.1-0.6); Monocytes Percent Auto 2.1 % (2.6-8.5); Neutrophils Absolute Auto 6.1 K/mm3 (1.3-6.7); Neutrophils Percent Auto 18.7 % (45.5-73.1); Platelet Count Result 153 k/mm3 (150-375); Red Blood Count 5.09 M/mm3 (4.6-6.20); Red Cell Distribution Width 13.9 % (11.5-14.5); White Blood Count 32.8 K/mm3 (4.5-10.0)
[2020-11-08 11:13] LABS: Blood Urea Nitrogen 20 mg/dL (8-26); Carbon Dioxide 29 mmol/L (22-30); Chloride 101 mmol/L (98-109); Estimated Glomerular Filt Rate 58; Glucose 87 mg/dL (70-105); Potassium 4.3 mmol/L (3.5-4.9); Sodium 138 mmol/L (138-146)
[2020-11-08 11:13] LABS: Atypical Lymphocytes Present; Platelet Estimate Adequate (Adequate)
[2020-11-08 14:27] LABS: Alanine Aminotransferase 14 U/L (4-50); Albumin Level 4.1 g/dL (3.5-5.1); Alkaline Phosphatase 62 U/L (38-126); Anion Gap 4 mmol/L (8-16); Aspartate Amino Transferase 18 U/L (17-59); Bilirubin,Total 0.4 mg/dL (0.2-1.3); Blood Urea Nitrogen 20 mg/dL (9-20); Calcium 9.4 mg/dL (8.4-10.2); Carbon Dioxide 30 mmol/L (22-30); Chloride 103 mmol/L (98-107); Estimated Glomerular Filt Rate > 60; Glucose 89 mg/dL (75-110); Potassium 4.5 mmol/L (3.4-5.0); Sodium 137 mmol/L (137-145)
== END 2020-11-08 10:39 | disposition home or self-care (01) ==
LOC: ANHLAB 10:40
PROVIDERS: PCP Nurse Practitioner Family; Visit Provider Internal Medicine Hematology & Oncology
DX: C83.00 Small cell B-cell lymphoma, unspecified site (principal)
CPT/HCPCS: 36415; 80048; 80053; 85025

== ENCOUNTER 2020-12-18 16:05 | Outpatient (CLI) | payer OTHER, MEDICAID, SELFPAY ==
--- NOTE | ~2020-12-18 | XR_ITS ---
EXAMINATION: XR shoulder RT min 2V DATE: 12/18/2020 16:31 INDICATION: Right shoulder pain. TECHNIQUE: 5 views of right shoulder were obtained. COMPARISON: None. FINDINGS: Bone alignment is normal. No fracture. Glenohumeral joint is normal. There is severe acromi oclavicular joint osteoarthritis. IMPRESSION: 1. Severe right acromioclavicular joint osteoarthritis. Reviewed, dictated and finalized at location A.
== END 2020-12-18 16:06 | disposition home or self-care (01) ==
LOC: CHSIMG 16:08
PROVIDERS: PCP Internal Medicine; Visit Provider Internal Medicine
DX: M25.511 Pain in right shoulder (principal); M19.011 Primary osteoarthritis, right shoulder
CPT/HCPCS: 73030

== ENCOUNTER 2021-05-09 09:52 | Outpatient (CLI) | payer OTHER, MEDICAID, SELFPAY ==
[2021-05-09 10:06] LABS: Basophils Absolute Auto 0.2 K/mm3 (0.0-0.1); Basophils Percent Auto 0.6 % (0.2-1.2); Eosinophils Absolute Auto 0.2 K/mm3 (0-0.3); Eosinophils Percent Auto 0.6 % (0-4.4); Hematocrit 46.4 % (42.0-52.0); Hemoglobin 15.1 g/dL (14.0-18.0); Immature Granulocyte Absolute 0.06 K/mm3 (0.00-0.031); Immature Granulocyte Percent A 0.2 % (0-0.5); Lymphocytes Absolute Auto 23.47 K/mm3 (0.9-3.2); Lymphocytes Percent Auto 79.7 % (18.3-44.2); Mean Corpuscular HGB Conc 32.5 g/dl (32-36); Mean Corpuscular Hemoglobin 30.4 pg (26-34); Mean Corpuscular Volume 93.5 fl (80-100); Mean Platelet Volume 10.7 fl (7.4-10.4); Monocytes Absolute Auto 0.7 K/mm3 (0.1-0.6); Monocytes Percent Auto 2.2 % (2.6-8.5); Neutrophils Absolute Auto 4.9 K/mm3 (1.3-6.7); Neutrophils Percent Auto 16.7 % (45.5-73.1); Platelet Count Result 156 k/mm3 (150-375); Red Blood Count 4.96 M/mm3 (4.6-6.20); Red Cell Distribution Width 14.5 % (11.5-14.5); White Blood Count 29.5 K/mm3 (4.5-10.0)
[2021-05-09 10:10] LABS: Blood Urea Nitrogen 16 mg/dL (8-26); Carbon Dioxide 26 mmol/L (22-30); Chloride 102 mmol/L (98-109); Estimated Glomerular Filt Rate > 60; Glucose 88 mg/dL (70-105); Potassium 4.2 mmol/L (3.5-4.9); Sodium 141 mmol/L (138-146)
[2021-05-09 10:13] LABS: Atypical Lymphocytes Present; Platelet Estimate Adequate (Adequate)
[2021-05-09 12:25] LABS: Alanine Aminotransferase 12 U/L (4-50); Albumin Level 4.2 g/dL (3.5-5.1); Alkaline Phosphatase 64 U/L (38-126); Anion Gap 6 mmol/L (8-16); Aspartate Amino Transferase 17 U/L (17-59); Bilirubin,Total 0.5 mg/dL (0.2-1.3); Blood Urea Nitrogen 16 mg/dL (9-20); Calcium 9.2 mg/dL (8.4-10.2); Carbon Dioxide 27 mmol/L (22-30); Chloride 106 mmol/L (98-107); Estimated Glomerular Filt Rate > 60; Glucose 87 mg/dL (65-110); Potassium 4.3 mmol/L (3.4-5.0); Sodium 139 mmol/L (137-145)
== END 2021-05-09 09:53 | disposition home or self-care (01) ==
LOC: ANHLAB 09:54
PROVIDERS: PCP Internal Medicine; Visit Provider Internal Medicine Hematology & Oncology
DX: C83.00 Small cell B-cell lymphoma, unspecified site (principal)
CPT/HCPCS: 36415; 80048; 80053; 85025

== ENCOUNTER 2021-06-13 10:21 | Outpatient (CLI) | payer OTHER, MEDICAID, SELFPAY ==
[2021-06-13 11:12] LABS: SARS-CoV-2 RNA PCR Negative (Negative)
== END 2021-06-13 10:22 | disposition home or self-care (01) ==
PROVIDERS: PCP Internal Medicine; Visit Provider Nurse Practitioner Family
DX: J06.9 Acute upper respiratory infection, unspecified (principal); Z20.822 Contact with and (suspected) exposure to COVID-19
CPT/HCPCS: C9803; U0003; U0005

== ENCOUNTER 2021-07-08 17:15 | Emergency (ER) | payer OTHER, MEDICAID, SELFPAY ==
[2021-07-08 19:49] VITALS: BP 136/70; PULSE 72; RESP 16; TEMP 36.8; O2SAT 97
--- NOTE | 2021-07-08 21:49 | ED.EYEPROB ---
HPI - Eye Problem General Chief complaint: Eye Problems Stated complaint: eye trouble, cough,congestion Time Seen by Provider: 07/08/21 19:51 Source: patient and RN notes reviewed Limitations: no limitations History of Present Illness chief complaint: eye redness and other (mild lids matter, no pus) Onset (ago): day(s) (1) Duration: constant Location: both eyes Eye Symptoms: burning, redness and foreign body sensation Place: home Mechanism: none Severity: mild Severity scale (1-10): 4 Context: recent URI Treatments Prior to Arrival: none Related Data Home Medications Medication Instructions Recorded Confirmed allopurinol 300 mg PO DAILY 01/13/20 07/06/20 ibrutinib [Imbruvica] 420 mg PO DAILY 01/13/20 07/06/20 lisinopril-hydrochlorothiazide 1 tablet PO DAILY 01/13/20 07/06/20 ketorolac See Rx Instructions .ROUTE .COMPLEX 07/06/20 07/06/20 methylprednisolone [Medrol (Yair)] See Rx Instructions .ROUTE .COMPLEX 07/06/20 07/06/20 Allergies Allergy/AdvReac Type Severity Reaction Status Date / Time Penicillins Allergy Intermediate Hives Verified 03/21/20 17:49 Review of Systems Review of Systems: All systems reviewed & are unremarkable except as noted in HPI and below Eyes: Eyes: Reports photophobia PMFSH Past Medical History Medical History Gout Hypertension Lymphoma Surgical History Surgical History History of removal of Port-a-Cath Social History Social History Smoking status: Former smoker Gender identity (if verbalized by the patient): Male Sexual Orientation (if Verbalized by the Patient): Straight or Heterosexual Exam Const: General: no acute distress and alert Orientation/consciousness: patient oriented x3 HENMT: Head: normal to inspection Ears: external ears normal and TM's normal bilaterally General nose exam: Normal external nose present and Normal nares present Mouth: Yes lip normal and Yes moist mucous membranes Teeth and gingiva: dentition normal Eyes: Pupils: Equal, round and reactive pupils present Other: mild scleral injection with the lids minimally irritated. vision grossly normal Neck: Neck: normal visual inspection and no lymphadenopathy Chest: Chest palpation & inspection: normal inspection of the chest Resp: Effort & Inspection: normal respiratory effort Auscultation: clear to auscultation bilaterally Cardio: Rate: regular rate Rhythm: regular rhythm GI: Auscultation: normal bowel sounds Other: soft, non-teder abdomen : General: No Bladder palpation abnormal and Yes no CVA tenderness Testes: Testes normal Back/Spine/Pelvis: Back: no CVA tenderness Skin: General skin exam: normal color Neuro: General: patient oriented x3, moves all extremities, no meningeal signs, no focal motor deficits and CN's II-XI intact bilaterally Extrem: General: normal to inspection and no pedal edema Psych: Appearance: grossly normal and well kempt Mental Status: mental status grossly normal Affect: normal affect Attitude: cooperative Thought content: Yes Normal thought content present and No Ideas of reference present (thought content) Course Course Emergency Course: Pt left prior to the treatment plan. meds were sent to the pharmacy and had been discussed with the patient. Reevaluation(s) Reevaluation #1: pt was awaiting Tx. Date: 07/08/21 Time: 20:50 Vital Signs Vital signs: Vital Signs Temperature 36.8 C 07/08/21 19:49 Pulse Rate 72 07/08/21 19:49 Respiratory Rate 16 07/08/21 19:49 Blood Pressure 136/70 07/08/21 19:49 Pulse Oximetry 97 07/08/21 19:49 Temperature 36.8 C 07/08/21 19:49 Pulse Rate 72 07/08/21 19:49 Respiratory Rate 16 07/08/21 19:49 Blood Pressure 136/70 07/08/21 19:49 Pulse Oximetry 97 07/08/21 19:49 Critical Care Time Critical Care Time
--- NOTE | 2021-07-08 22:13 | PC.NURSE ---
Patient refused to stay due to long wait time. States that he will follow up with PCP. refused to sign AMA form. Patient ambulated out of ER without difficulty.
== END 2021-07-08 22:15 | disposition left against medical advice (07) ==
PROVIDERS: Emergency Provider Emergency Medicine; PCP Internal Medicine
DX: Z53.8 Procedure and treatment not carried out for other reasons (principal)
CPT/HCPCS: 99199

== ENCOUNTER 2021-11-07 09:20 | Outpatient (CLI) | payer BC, SELFPAY ==
[2021-11-07 09:33] LABS: Basophils Absolute Auto 0.1 K/mm3 (0.0-0.1); Basophils Percent Auto 0.7 % (0.2-1.2); Eosinophils Absolute Auto 0.2 K/mm3 (0-0.3); Eosinophils Percent Auto 1.8 % (0-4.4); Hematocrit 47.4 % (42.0-52.0); Immature Granulocyte Absolute 0.03 K/mm3 (0.00-0.031); Immature Granulocyte Percent A 0.2 % (0-0.5); Lymphocytes Absolute Auto 8.37 K/mm3 (0.9-3.2); Lymphocytes Percent Auto 63.9 % (18.3-44.2); Mean Corpuscular HGB Conc 31.6 g/dl (32-36); Mean Corpuscular Volume 94.8 fl (80-100); Mean Platelet Volume 10.8 fl (7.4-10.4); Monocytes Absolute Auto 0.6 K/mm3 (0.1-0.6); Monocytes Percent Auto 4.3 % (2.6-8.5); Neutrophils Absolute Auto 3.8 K/mm3 (1.3-6.7); Neutrophils Percent Auto 29.1 % (45.5-73.1); Platelet Count Result 124 k/mm3 (150-375); Red Cell Distribution Width 14.1 % (11.5-14.5); White Blood Count 13.1 K/mm3 (4.5-10.0)
[2021-11-07 09:39] LABS: Blood Urea Nitrogen 18 mg/dL (8-26); Carbon Dioxide 26 mmol/L (22-30); Chloride 105 mmol/L (98-109); Estimated Glomerular Filt Rate 58; Glucose 74 mg/dL (70-105); Ionized Calcium (POC) 1.19 mmol/L (1.11-1.31); Potassium 4.2 mmol/L (3.5-4.9); Sodium 141 mmol/L (138-146)
[2021-11-07 11:04] LABS: Alanine Aminotransferase 11 U/L (4-50); Albumin Level 3.8 g/dL (3.5-5.1); Alkaline Phosphatase 60 U/L (38-126); Anion Gap 3 mmol/L (8-16); Aspartate Amino Transferase 16 U/L (17-59); Bilirubin,Total 0.6 mg/dL (0.2-1.3); Blood Urea Nitrogen 19 mg/dL (9-20); Calcium 8.5 mg/dL (8.4-10.2); Carbon Dioxide 27 mmol/L (22-30); Chloride 109 mmol/L (98-107); Estimated Glomerular Filt Rate > 60; Glucose 75 mg/dL (65-110); Lactate Dehydrogenase 299 U/L (313-618); Potassium 4.2 mmol/L (3.4-5.0); Sodium 139 mmol/L (137-145)
== END 2021-11-07 09:21 | disposition home or self-care (01) ==
LOC: ANHLAB 09:20
PROVIDERS: PCP Internal Medicine; Visit Provider Internal Medicine Hematology & Oncology
DX: C83.00 Small cell B-cell lymphoma, unspecified site (principal)
CPT/HCPCS: 36415; 80047; 80053; 83615; 85025

== ENCOUNTER 2022-03-01 07:55 | Outpatient (CLI) | payer BC, SELFPAY ==
[2022-03-01 09:17] LABS: Hematocrit 44.7 % (40.0-54.0); Hemoglobin 14.6 g/dL (14.0-18.0); Immature Platelet Fraction Pct 3.9 % (1.0-7.0); Mean Corpuscular HGB Conc 32.7 g/dL (32.0-36.0); Mean Corpuscular Volume 94.9 fL (78.0-102.0); Mean Platelet Volume 10.9 fl (8.7-11.0); Platelet Count Result 135 K/mm3 (150-420); Red Blood Count 4.71 M/mm3 (4.70-6.10); Red Cell Distribution Width 14.3 % (11.6-14.4); White Blood Count 14.3 K/mm3 (4.8-10.8)
[2022-03-01 09:25] LABS: Appearance Urine Clear (Clear); Bilirubin Urine Negative (Negative); Color Urine Yellow (Yellow); Glucose Urine UA Negative (Negative); Ketones Urine Negative (Negative); Leukocyte Esterase Ur Negative LEU/UL (Negative); Nitrate Urine Negative (Negative); Protein Urine Negative (Negative); Urobilinogen Urine 0.2 mg/dL (0.2-1.0)
[2022-03-01 09:35] LABS: Band Neutrophils Percent 0 % (0-6); Basophils Absolute Manual 0.14 K/mm3 (0-0.1); Basophils Percent Manual 1 % (0-1); Eosinophils Absolute Manual 0.42 K/mm3 (0.02-0.5); Eosinophils Percent Manual 3 % (1-6); Lymphocytes Absolute Manual 8.86 K/mm3 (1.1-4.5); Lymphocytes Percent Manual 62 % (18-44); Monocytes Absolute Manual 0.28 K/mm3 (0.1-0.90); Monocytes Percent Manual 2 % (3-9); Neutrophils Absolute Manual 4.57 K/mm3 (1.3-6.7); Neutrophils Percent Manual 32 % (46-73); Platelet Estimate Adequate (Adequate); Total Cells Counted 100
[2022-03-01 09:36] LABS: Add Urine Microscopic? YES; Blood Urine Trace-Intact (Negative); RBC Urine 0-2 /hpf (0-2)
[2022-03-01 09:47] LABS: Alanine Aminotransferase 14 U/L (16-63); Albumin Level 3.4 g/dL (3.4-5.0); Alkaline Phosphatase 65 U/L (46-116); Anion Gap 7 mmol/L (8-16); Aspartate Amino Transferase 11 U/L (15-37); Bilirubin,Total 0.4 mg/dL (0.00-1.00); Blood Urea Nitrogen 18 mg/dL (7-18); Calcium 8.5 mg/dL (8.5-10.1); Carbon Dioxide 27 mmol/L (21-32); Chloride 106 mmol/L (98-108); Cholesterol 143 mg/dL (0-200); Estimated Glomerular Filt Rate > 60; Glucose 83 mg/dL (70-99); HDL Direct 45 mg/dL (40-60); LDL Cholesterol Calculated 87 mg/dL (<130); Osmolality Calculated 290 mOsm/kg (285-295); Potassium 4.8 mmol/L (3.5-5.1); Prostate Specific Antigen 3.5 ng/mL (< OR = 4.0); Sodium 140 mmol/L (136-145); Thyroid Stimulating Hormone 1.16 uIU/mL (0.36-3.74); Total Protein 6.3 g/dL (6.4-8.2); Triglycerides 55 mg/dL (0-150)
== END 2022-03-01 07:56 | disposition home or self-care (01) ==
LOC: CHSLAB 07:57
PROVIDERS: PCP Internal Medicine; Visit Provider Internal Medicine
DX: Z00.00 Encounter for general adult medical examination without abnormal findings (principal); Z12.5 Encounter for screening for malignant neoplasm of prostate
CPT/HCPCS: 36415; 80053; 80061; 81001; 84153; 84439; 84443; 85025; 85055; G0103

== ENCOUNTER 2022-05-01 10:37 | Outpatient (CLI) | payer BC, SELFPAY ==
[2022-05-01 11:00] LABS: Blood Urea Nitrogen 15 mg/dL (8-26); Carbon Dioxide 31 mmol/L (22-30); Chloride 102 mmol/L (98-109); Estimated Glomerular Filt Rate > 60; Glucose 94 mg/dL (70-105); Ionized Calcium (POC) 1.25 mmol/L (1.11-1.31); Potassium 4.4 mmol/L (3.5-4.9); Sodium 141 mmol/L (138-146)
[2022-05-01 11:02] LABS: Basophils Absolute Auto 0.1 K/mm3 (0.0-0.1); Basophils Percent Auto 0.9 % (0.2-1.2); Eosinophils Absolute Auto 0.2 K/mm3 (0-0.3); Eosinophils Percent Auto 1.9 % (0-4.4); Hematocrit 45.4 % (42.0-52.0); Hemoglobin 15.2 g/dL (14.0-18.0); Immature Granulocyte Absolute 0.01 K/mm3 (0.00-0.031); Immature Granulocyte Percent A 0.1 % (0-0.5); Immature Platelet Fraction Pct 5.6 % (0.9-11.2); Lymphocytes Absolute Auto 5.09 K/mm3 (0.9-3.2); Lymphocytes Percent Auto 56.1 % (18.3-44.2); Mean Corpuscular HGB Conc 33.5 g/dl (32-36); Mean Corpuscular Hemoglobin 31.3 pg (26-34); Mean Corpuscular Volume 93.6 fl (80-100); Monocytes Absolute Auto 0.5 K/mm3 (0.1-0.6); Monocytes Percent Auto 5.6 % (2.6-8.5); Neutrophils Absolute Auto 3.2 K/mm3 (1.3-6.7); Neutrophils Percent Auto 35.4 % (45.5-73.1); Platelet Count Result 131 k/mm3 (150-375); Red Blood Count 4.85 M/mm3 (4.6-6.20); Red Cell Distribution Width 14.1 % (11.5-14.5); White Blood Count 9.1 K/mm3 (4.5-10.0)
[2022-05-01 11:04] LABS: Atypical Lymphocytes Present; Platelet Estimate Decreased (Adequate); Schistocytes None Seen (NORMAL)
[2022-05-01 14:15] LABS: Alanine Aminotransferase 16 U/L (6-50); Alkaline Phosphatase 62 U/L (38-126); Anion Gap 8 mmol/L (8-16); Aspartate Amino Transferase 15 U/L (17-59); Bilirubin,Total 0.4 mg/dL (0.2-1.3); Blood Urea Nitrogen 16 mg/dL (9-20); Calcium 9.1 mg/dL (8.4-10.2); Carbon Dioxide 28 mmol/L (22-30); Chloride 104 mmol/L (98-107); Estimated Glomerular Filt Rate > 60; Glucose 92 mg/dL (65-110); Lactate Dehydrogenase 116 U/L (120-246); Potassium 4.4 mmol/L (3.4-5.0); Sodium 140 mmol/L (137-145)
== END 2022-05-01 10:38 | disposition home or self-care (01) ==
LOC: ANHLAB 10:40
PROVIDERS: PCP Internal Medicine; Visit Provider Internal Medicine Hematology & Oncology
DX: C83.00 Small cell B-cell lymphoma, unspecified site (principal)
CPT/HCPCS: 36415; 80047; 80053; 83615; 85025; 85055

== ENCOUNTER 2022-10-16 18:14 | Emergency (ER) | payer BC, SELFPAY ==
[2022-10-16 18:23] VITALS: BP 151/78; PULSE 88; RESP 20; TEMP 36.9; O2SAT 97
[2022-10-16 19:15] LABS: Appearance Urine Clear (Clear); Bilirubin Urine Negative (Negative); Blood Urine Negative (Negative); Color Urine Yellow (Yellow); Glucose Urine UA Negative (Negative); Ketones Urine Negative (Negative); Leukocyte Esterase Ur Negative LEU/UL (Negative); Nitrate Urine Negative (Negative); Protein Urine Negative (Negative); Specific Grav Ur 1.025 (1.010-1.020); Urobilinogen Urine 0.2 mg/dL (0.2-1.0); pH Urine 6.5 (5.0-8.0)
[2022-10-16 19:16] LABS: Add Urine Microscopic? NO
[2022-10-16 20:24] VITALS: BP 131/81; PULSE 88; RESP 20; TEMP 36.7; O2SAT 99
--- NOTE | 2022-10-17 02:57 | ED.BACK ---
HPI - Back Pain/Injury General Chief Complaint: Back Pain/Injury Stated Complaint: left lower back pain Time Seen by Provider: 10/16/22 19:07 Source: patient Mode of arrival: ambulatory Limitations: no limitations History of Present Illness MD elicited complaint: back pain Onset (ago): day(s) Timing: constant Severity: moderate Similar Symptoms Previously: No Quality: burning Location: lumbar spine Radiation: none Exacerbating factors: none Relieving factors: none Context: while lifting Associated symptoms: denies other symptoms Treatments prior to arrival: acetaminophen Related Data Home Medications Medication Instructions Recorded Confirmed allopurinol 300 mg tablet 300 mg PO DAILY 01/13/20 10/16/22 ibrutinib 420 mg tablet (Imbruvica) 420 mg PO DAILY 01/13/20 10/16/22 lisinopril 10 1 tablet PO DAILY 01/13/20 10/16/22 mg-hydrochlorothiazide 12.5 mg tablet Allergies Allergy/AdvReac Type Severity Reaction Status Date / Time Penicillins Allergy Intermediate Hives Verified 10/16/22 18:31 Review of Systems Review of Systems: All systems reviewed & are unremarkable except as noted in HPI and below Constitutional: Constitutional: Denies fever(s) ENT: Denies vertigo Cardiovascular: Cardiovascular: Denies chest pain Respiratory: Respiratory: Denies cough Genitourinary: Genitourinary: Denies dysuria, Denies penile discharge, Denies testicular pain and Denies urinary incontinence Musculoskeletal: Musculoskeletal: Denies myalgias Integumentary/Breasts: Skin/Breast: Denies erythema and Denies rash Neurologic: Denies headache(s) [facility] Past Medical History Medical History (Updated 10/17/22 @ 00:01 by Curt Akhtar) Gout Hypertension Lymphoma Surgical History Surgical History History of removal of Port-a-Cath Social History Social History Smoking status: Former smoker Gender identity (if verbalized by the patient): Male Sexual Orientation (if Verbalized by the Patient): Straight or Heterosexual Exam Const: General: healthy appearing Nutritional Appearance: well nourished Limitations: no limitations HENMT: Head: normal to inspection Neck: Neck: normal visual inspection Chest: Chest palpation & inspection: normal inspection of the chest Resp: Effort & Inspection: normal respiratory effort GI: Inspection: non-distended Back/Spine/Pelvis: Back: no CVA tenderness Skin: General skin exam: normal color Rashes: no rashes Extrem: General: normal to inspection Psych: Mental Status: mental status grossly normal Course Vital Signs Vital signs: Vital Signs Temperature 36.9 C 10/16/22 18:23 Pulse Rate 88 10/16/22 18:23 Respiratory Rate 20 10/16/22 18:23 Blood Pressure 151/78 H 10/16/22 18:23 Pulse Oximetry 97 10/16/22 18:23 Oxygen Delivery Room Air 10/16/22 18:23 Temperature 36.7 C 10/16/22 20:24 Pulse Rate 88 10/16/22 20:24 Respiratory Rate 20 10/16/22 20:24 Blood Pressure 131/81 10/16/22 20:24 Pulse Oximetry 99 10/16/22 20:24 Oxygen Delivery Room Air 10/16/22 20:24 MDM - Back Pain/Injury Lab Data Labs: Lab Results 10/16/22 Range/Units 19:11 Urine Color Yellow (Yellow) Urine Appearance Clear (Clear) Urine pH 6.5 (5.0-8.0) Ur Specific [place] 1.025 H (1.010-1.020) Urine Protein Negative (Negative) Urine Glucose (UA) Negative (Negative) Urine Ketones Negative (Negative) Ur Blood (Man) Negative (Negative) Urine Nitrate Negative (Negative) Urine Bilirubin Negative (Negative) Urine Urobilinogen 0.2 (0.2-1.0) mg/dL Leukocyte Esterase Rfl Negative (Negative) GEO/UL Discharge Plan Discharge Clinical Impression: Strain of lumbar region Patient Disposition: Home, Self-Care Condition: Stable Instructions: Acute Low Back Pain (ED)
== END 2022-10-16 20:26 | disposition home or self-care (01) ==
PROVIDERS: Emergency Provider Family Medicine; PCP Internal Medicine
DX: S39.012A Strain of muscle, fascia and tendon of lower back, initial encounter (principal); M10.9 Gout, unspecified; I10 Essential (primary) hypertension; Z85.72 Personal history of non-Hodgkin lymphomas
CPT/HCPCS: 81003; 99283

== ENCOUNTER 2022-10-22 06:59 | Emergency (ER) | payer BC, SELFPAY ==
--- NOTE | ~2022-10-22 | CT_ITS ---
EXAMINATION: CT lumbar spine wo con DATE: 10/22/2022 07:42 INDICATION: Low back pain. TECHNIQUE: Computed tomography (CT) of the lumbar spine was performed without intravenous contrast. A utomated exposure control and iterative reconstruction technique were employed. The dose-length produ ct was 737.90 mGy-cm. COMPARISON: CT abdomen and pelvis 07/09/2020 FINDINGS: There are 2 masses containing fat in left kidney measuring up to 10 mm, consistent with ang iomyolipomas. There are cysts in left kidney measuring up to 11 mm. Bone alignment is normal. Vertebr al body heights are normal. There is mildly decreased disc height at L2-L3, L3-L4, and L5-S1. The fol lowing disc levels are specifically discussed: L1-L2: The disc is bulging. There is mild bilateral facet joint osteoarthritis. There is mild bilater al neural foraminal stenosis. There is mild central canal stenosis. L2-L3: The disc is bulging. There is mild bilateral facet joint osteoarthritis. There is mild bilater al neural foraminal stenosis. There is mild central canal stenosis. L3-L4: The disc is bulging. There is mild bilateral facet joint osteoarthritis. There is mild bilater al neural foraminal stenosis. There is mild central canal stenosis. L4-L5: The disc is bulging. There is mild bilateral facet joint osteoarthritis. There is mild right a nd moderate left neural foraminal stenosis. There is mild central canal stenosis. L5-S1: This is bulging. There is mild bilateral facet joint osteoarthritis. There is mild bilateral n eural foraminal stenosis. There is mild central canal stenosis. IMPRESSION: 1. Moderate left neural foraminal stenosis at L4-L5. Otherwise mild lumbar spondylosis. Reviewed, dictated and finalized at location A. IMPRESSION: 1. Moderate left neural foraminal stenosis at L4-L5. Otherwise mild lumbar spon dylosis.
[2022-10-22 07:01] VITALS: BP 175/84; PULSE 99; RESP 20; TEMP 36.5; O2SAT 100
[2022-10-22] MEDS: ORPHENADRINE CITRATE 30 MG/ML 2 ML VIAL 60 MG IM (07:42)
[2022-10-22] MEDS: KETOROLAC (*BKC) 60 MG/2 ML VIAL IM (07:42)
--- NOTE | 2022-10-22 07:47 | PC.NURSE ---
PT HAS RETURNED FROM RADIOLOGY, MEDICATION WAS ADMINISTERED WITHOUT DIFFICULTY. PT IS SITTING UPRIGHT IN CHAIR. PT AMBULATES TO STRETCHER WITHOUT DIFFICULTY, TURNS OVER WITHOUT DISTRESS. PT IS AWAITING RESULTS. WILL CONTINUE TO MONITOR.
--- NOTE | 2022-10-22 07:49 | ED.BACK ---
HPI - Back Pain/Injury General Chief Complaint: Back Pain/Injury Stated Complaint: back pain Source: patient Mode of arrival: ambulatory Limitations: no limitations History of Present Illness HPI Narrative: this is a 52-year-old male that presents with lower back pain radiating into his left upper leg with some tingling in the left upper leg has been often on over a couple weeks has seen his primary care provider and is offered minimal relief with pain medication, the patient presents with pain that he rates at about an 8/10 radiating to his left upper leg with no saddle paresthesias no neurological deficits. The patient has no known injury is a smoker and has history of hypertension. MD elicited complaint: back pain Pertinent past history: prior back pain Onset (ago): week(s) Timing: constant Severity: severe Pain scale (0-10): 8 Quality: sharp Location: lumbar spine Radiation: left upper leg Exacerbating factors: movement, walking and coughing/sneezing Relieving factors: immobilization Context: while lifting and turning/twisting Associated symptoms: numbness and difficulty walking Related Data Home Medications Medication Instructions Recorded Confirmed allopurinol 300 mg tablet 300 mg PO DAILY 01/13/20 10/22/22 ibrutinib 420 mg tablet (Imbruvica) 420 mg PO DAILY 01/13/20 10/22/22 lisinopril 10 1 tablet PO DAILY 01/13/20 10/22/22 mg-hydrochlorothiazide 12.5 mg tablet Allergies Allergy/AdvReac Type Severity Reaction Status Date / Time Penicillins Allergy Intermediate Hives Verified 10/22/22 07:01 Review of Systems Review of Systems: All systems reviewed & are unremarkable except as noted in HPI and below PMFSH Past Medical History Medical History (Updated 10/22/22 @ 08:13 by Juan Mistry MD) Gout Hypertension Lymphoma Surgical History Surgical History History of removal of Port-a-Cath Social History Social History Smoking status: Former smoker Gender identity (if verbalized by the patient): Male Sexual Orientation (if Verbalized by the Patient): Straight or Heterosexual Exam Const: General: healthy appearing Nutritional Appearance: well nourished Orientation/consciousness: patient oriented x3 Limitations: no limitations HENMT: Head: normal to inspection Neck: Neck: normal visual inspection Chest: Chest palpation & inspection: normal inspection of the chest Resp: Effort & Inspection: normal respiratory effort Auscultation: clear to auscultation bilaterally Cardio: Rate: regular rate Rhythm: regular rhythm GI: Auscultation: normal bowel sounds : General: Yes bladder normal to palpation Skin: General skin exam: normal color Rashes: no rashes Wounds: no wounds Neuro: General: patient oriented x3, moves all extremities and no focal motor deficits Extrem: Other: Positive straight leg raising test on the left Course Course Emergency Course: reassessment of patient, his pain level has improved down to 5 CT scan of his lower back was reviewed with the patient informed patient that he has multiple levels of bulging discs with mild spinal stenosis. Patient also received a muscle relaxer and IM Toradol. Vital Signs Vital signs: Vital Signs Temperature 36.5 C 10/22/22 07:01 Pulse Rate 99 10/22/22 07:01 Respiratory Rate 20 10/22/22 07:01 Blood Pressure 175/84 H 10/22/22 07:01 Pulse Oximetry 100 10/22/22 07:01 Oxygen Delivery Room Air 10/22/22 07:01 Temperature 36.5 C 10/22/22 07:01 Pulse Rate 99 10/22/22 07:01 Respiratory Rate 20 10/22/22 07:01 Blood Pressure 175/84 H 10/22/22 07:01 Pulse Oximetry 100 10/22/22 07:01 Oxygen Delivery Room Air 10/22/22 07:01 Critical Care Time Critical Care Time Critical Care Time: No Discharge Plan Discharge Clinical Impression: Sciatica Qualifiers: Laterality:
[2022-10-22 08:20] VITALS: BP 139/83; PULSE 68; RESP 16; O2SAT 99
== END 2022-10-22 08:20 | disposition home or self-care (01) ==
PROVIDERS: Emergency Provider Emergency Medicine; PCP Internal Medicine
DX: M54.32 Sciatica, left side (principal); I10 Essential (primary) hypertension; Z87.891 Personal history of nicotine dependence
CPT/HCPCS: 72131; 96372; 99284; J1885; J2360

== ENCOUNTER 2022-10-30 11:38 | Outpatient (CLI) | payer BC, SELFPAY ==
[2022-10-30 11:49] LABS: Basophils Absolute Auto 0.1 K/mm3 (0.0-0.1); Basophils Percent Auto 0.8 % (0.2-1.2); Eosinophils Absolute Auto 0.2 K/mm3 (0-0.3); Hematocrit 44.3 % (42.0-52.0); Hemoglobin 14.7 g/dL (14.0-18.0); Immature Granulocyte Absolute 0.05 K/mm3 (0.00-0.031); Immature Granulocyte Percent A 0.3 % (0-0.5); Lymphocytes Absolute Auto 10.28 K/mm3 (0.9-3.2); Lymphocytes Percent Auto 64.8 % (18.3-44.2); Mean Corpuscular HGB Conc 33.2 g/dl (32-36); Mean Corpuscular Hemoglobin 30.4 pg (26-34); Mean Corpuscular Volume 91.5 fl (80-100); Mean Platelet Volume 10.2 fl (7.4-10.4); Monocytes Absolute Auto 0.4 K/mm3 (0.1-0.6); Monocytes Percent Auto 2.8 % (2.6-8.5); Neutrophils Absolute Auto 4.8 K/mm3 (1.3-6.7); Neutrophils Percent Auto 30.3 % (45.5-73.1); Platelet Count Result 135 k/mm3 (150-375); Red Blood Count 4.84 M/mm3 (4.6-6.20); White Blood Count 15.9 K/mm3 (4.5-10.0)
[2022-10-30 11:54] LABS: Blood Urea Nitrogen 19 mg/dL (8-26); Carbon Dioxide 28 mmol/L (22-30); Chloride 105 mmol/L (98-109); Estimated Glomerular Filt Rate > 60; Glucose 112 mg/dL (70-105); Ionized Calcium (POC) 1.21 mmol/L (1.11-1.31); Potassium 4.1 mmol/L (3.5-4.9); Sodium 140 mmol/L (138-146)
[2022-10-30 13:37] LABS: Alanine Aminotransferase 17 U/L (6-50); Alkaline Phosphatase 63 U/L (38-126); Anion Gap 7 mmol/L (8-16); Aspartate Amino Transferase 16 U/L (17-59); Bilirubin,Total 0.5 mg/dL (0.2-1.3); Blood Urea Nitrogen 19 mg/dL (9-20); Calcium 8.6 mg/dL (8.4-10.2); Carbon Dioxide 25 mmol/L (22-30); Chloride 105 mmol/L (98-107); Estimated Glomerular Filt Rate > 60; Glucose 109 mg/dL (65-110); Potassium 4.2 mmol/L (3.4-5.0); Sodium 137 mmol/L (137-145)
== END 2022-10-30 11:39 | disposition home or self-care (01) ==
LOC: ANHLAB 11:40
PROVIDERS: PCP Internal Medicine; Visit Provider Internal Medicine Hematology & Oncology
DX: C83.00 Small cell B-cell lymphoma, unspecified site (principal)
CPT/HCPCS: 36415; 80047; 80053; 85025

== ENCOUNTER 2022-11-07 07:48 | Outpatient (CLI) | payer BC, SELFPAY ==
--- NOTE | ~2022-11-07 | MR_ITS ---
EXAMINATION: MR lumbar spine wo con DATE: 11/07/2022 08:52 INDICATION: Low back pain. TECHNIQUE: Magnetic resonance imaging (MRI) of the lumbar spine was performed without intravenous con trast. Sequences included sagittal T2-weighted FSE, sagittal T2-weighted FS FSE, sagittal T1-weighted FSE, and axial T2-weighted FSE. COMPARISON: CT lumbar spine 10/22/2022 FINDINGS: There is hypolordosis of lumbar spine. Vertebral body heights are normal. There is mildly d ecreased disc height at L3-L4. The distal spinal cord signal intensity is normal. The conus medullari s is at L1. The following disc levels are specifically discussed: L1-L2: The disc does not extend beyond the endplate margin. There is no facet joint osteoarthritis. T here is no neural foraminal stenosis. There is no central canal stenosis. L2-L3: The disc is mildly bulging. There is mild bilateral facet joint osteoarthritis. There is mild bilateral neural foraminal stenosis. There is no central canal stenosis. L3-L4: The disc is bulging and has an annular fissure. There is mild bilateral facet joint osteoarthr itis. There is mild bilateral neural foraminal stenosis. There is mild central canal stenosis. L4-L5: The disc is bulging and has an annular fissure. There is mild bilateral facet joint osteoarthr itis. There is mild bilateral neural foraminal stenosis. There is mild central canal stenosis. L5-S1: The disc is bulging and has an annular fissure. There is mild bilateral facet joint osteoarthr itis. There is mild right neural foraminal stenosis. There is no central canal stenosis. IMPRESSION: 1. Mild lumbar spondylosis. Reviewed, dictated and finalized at location A. IMPRESSION: 1. Mild lumbar spondylosis.
== END 2022-11-07 07:49 | disposition home or self-care (01) ==
LOC: CHSIMG 07:49
PROVIDERS: PCP Internal Medicine; Visit Provider Internal Medicine
DX: M54.50 Low back pain, unspecified (principal); M43.06 Spondylolysis, lumbar region
CPT/HCPCS: 72148

== ENCOUNTER 2023-01-05 19:34 | Emergency (ER) | payer BC, SELFPAY ==
[2023-01-05 19:38] VITALS: BP 173/86; PULSE 76; PULSE 77; RESP 16; RESP 18; TEMP 36.6; O2SAT 95; O2SAT 96
--- NOTE | 2023-01-05 19:39 | ED.DENTAL ---
HPI - Dental/Oral General Chief complaint: Dental/Oral Stated complaint: tooth ache Time Seen by Provider: 01/05/23 19:37 Source: patient Mode of arrival: ambulatory History of Present Illness HPI Narrative: 52-year-old with a history of hypertension, gout, lymphoma, chronic low back pain with sciatica presents to the ER with --Left upper dental pain for the past few days. The patient has extensive dental caries. No fever or chills. MD Complaint: tooth pain Location: Tooth # ( Extensive dental caries with multiple missing crowns.) Onset (ago): day(s) Duration: constant Severity: severe Relieving factors: nothing Exacerbating factors: nothing Context: history of dental caries Treatment prior to arrival: none Related Data Home Medications Medication Instructions Recorded Confirmed allopurinol 300 mg tablet 300 mg PO DAILY 01/13/20 10/22/22 ibrutinib 420 mg tablet (Imbruvica) 420 mg PO DAILY 01/13/20 10/22/22 lisinopril 10 1 tablet PO DAILY 01/13/20 10/22/22 mg-hydrochlorothiazide 12.5 mg tablet Allergies Allergy/AdvReac Type Severity Reaction Status Date / Time Penicillins Allergy Intermediate Hives Verified 10/22/22 07:01 Review of Systems Review of Systems: All systems reviewed & are unremarkable except as noted in HPI and below Constitutional: Constitutional: Reports as per HPI and Reports no additional constitutional complaints Eyes: Eyes: Reports as per HPI and Reports no additional eye complaints ENT: Reports system reviewed and no additional complaints, except as documented and Reports as per HPI Cardiovascular: Cardiovascular: Reports as per HPI and Reports no additional cardiovascular complaints Respiratory: Respiratory: Reports as per HPI and Reports no additional respiratory complaints Gastrointestinal: Gastrointestinal: Reports as per HPI and Reports no additional gastrointestinal complaints Genitourinary: Genitourinary: Reports no additional male genitourinary complaints and Reports as per HPI Musculoskeletal: Musculoskeletal: Reports no additional musculoskeletal complaints, Reports as per HPI and Reports back pain Comments: Chronic low back pain radiating to the left upper extremity. Integumentary/Breasts: Skin/Breast: Reports system reviewed and no additional complaints, except as docu and Reports as per HPI Neurologic: Reports system reviewed and no additional complaints, except as documented and Reports as per HPI Psychiatric: Psychiatric: Reports no additional psychiatric complaints and Reports as per HPI Endocrine: Endocrine: Reports no additional endocrine complaints and Reports as per HPI Hematologic/Lymphatic: Hematologic/Lymphatic: Reports no additional hematologic/lymphatic complaints and Reports as per HPI Allergic/Immunologic: Allergic/Immunologic: Reports no additional allergic/immunologic complaints and Reports as per HPI PMFSH Past Medical History Medical History (Updated 01/05/23 @ 20:08 by Juliocesar Jack MD) Gout Hypertension Lymphoma Surgical History Surgical History History of removal of Port-a-Cath Social History Social History Smoking status: Former smoker Gender identity (if verbalized by the patient): Male Sexual Orientation (if Verbalized by the Patient): Straight or Heterosexual Exam Const: General: no acute distress Nutritional Appearance: well nourished Orientation/consciousness: patient oriented x3 Limitations: no limitations HENMT: Head: normal to inspection Ears: external ears normal Face/Nose/Sinus: Normal external nose present Face and sinus: normal facial exam Mouth: Yes Normal oral and palatal mucosa present Teeth and gingiva: dentition normal ( Extensive dental caries without even a single normal tooth. ) Throat: posterior oropharynx normal Eyes: Conjunctivae: conjunctivae normal Pupils: Equa
[2023-01-05] MEDS: CLINDAMYCIN HCL 150 MG CAP 300 MG PO (20:52)
[2023-01-05] MEDS: HYDROcodone/acetaminophen (*CRX) 5-325 MG TABLET 1 TAB PO (20:52)
[2023-01-05 20:59] VITALS: BP 157/87; PULSE 77; RESP 15; TEMP 37; O2SAT 97
== END 2023-01-05 21:01 | disposition home or self-care (01) ==
PROVIDERS: Emergency Provider Internal Medicine Critical Care Medicine; PCP Internal Medicine
DX: K02.9 Dental caries, unspecified (principal); I10 Essential (primary) hypertension; Z87.891 Personal history of nicotine dependence
CPT/HCPCS: 99283; A9270

== ENCOUNTER 2023-01-11 15:47 | Emergency (ER) | payer BC, SELFPAY ==
[2023-01-11 15:47] VITALS: BP 147/80; PULSE 71; RESP 16; TEMP 36.6; O2SAT 97
--- NOTE | 2023-01-11 16:13 | ED.DENTAL ---
HPI - Dental/Oral General Chief complaint: Dental/Oral Stated complaint: dental pain Time Seen by Provider: 01/11/23 16:04 History of Present Illness HPI Narrative: 52yo man with severe dental caries presents with right lower molar severe pain radiating into sinuses and into right ear. No fever. Related Data Home Medications Medication Instructions Recorded Confirmed allopurinol 300 mg tablet 300 mg PO DAILY 01/13/20 01/11/23 ibrutinib 420 mg tablet (Imbruvica) 420 mg PO DAILY 01/13/20 01/11/23 lisinopril 10 1 tablet PO DAILY 01/13/20 01/11/23 mg-hydrochlorothiazide 12.5 mg tablet Allergies Allergy/AdvReac Type Severity Reaction Status Date / Time Penicillins Allergy Intermediate Hives Verified 01/11/23 15:56 Review of Systems Review of Systems: All systems reviewed & are unremarkable except as noted in HPI and below Constitutional: Constitutional: Denies chills and Denies fever(s) Eyes: Eyes: Denies change in vision ENT: Denies dysphagia Cardiovascular: Cardiovascular: Denies chest pain Respiratory: Respiratory: Denies dyspnea [facility] Past Medical History Medical History (Updated 01/11/23 @ 16:22 by Chirag Barrientos MD) Gout Hypertension Lymphoma Surgical History Surgical History History of removal of Port-a-Cath Social History Social History Smoking status: Former smoker Gender identity (if verbalized by the patient): Male Sexual Orientation (if Verbalized by the Patient): Straight or Heterosexual Exam Const: General: healthy appearing and no acute distress Nutritional Appearance: well nourished HENMT: Ears: external ears normal and TM's normal bilaterally Other: partially edentulous, remaining teeth with severe caries, gingiva severely receded and inflamed throughout Eyes: Conjunctivae: conjunctivae normal Neck: Other: supple Skin: General skin exam: normal color, no jaundice and no pallor Neuro: General: patient oriented x3 and no focal motor deficits Speech: normal speech Course Vital Signs Vital signs: Vital Signs Temperature 36.6 C 01/11/23 15:47 Pulse Rate 71 01/11/23 15:47 Respiratory Rate 16 01/11/23 15:47 Blood Pressure 147/80 H 01/11/23 15:47 Pulse Oximetry 97 01/11/23 15:47 Oxygen Delivery Room Air 01/11/23 15:47 Temperature 36.6 C 01/11/23 15:47 Pulse Rate 71 01/11/23 15:47 Respiratory Rate 16 01/11/23 15:47 Blood Pressure 147/80 H 01/11/23 15:47 Pulse Oximetry 97 01/11/23 15:47 Oxygen Delivery Room Air 01/11/23 15:48 MDM - Dental/Oral MDM Narrative Medical decision making narrative: odontalgia DDx periapical abscess, dental caries, gingivitis, no drainable abscess Medical Records Attestation: I reviewed the patient's medical records. Discharge Plan Discharge Clinical Impression: Severe dental caries, Gingivitis Patient Disposition: Home, Self-Care Condition: Stable Instructions: Antibiotic Form Additional Instructions: Take the prescribed antibiotics tablets and the antibiotic rinse for their full course. For additional pain control, rinse and gargle with warm salt water and take Ibuprofen 800 mg every 6 hours as needed. Prescriptions: New cephalexin 500 mg capsule 500 mg PO TIDWMEAL Qty: 30 0RF chlorhexidine gluconate 0.12 % mouthwash 15 ml buccal BID Qty: 473 0RF Rx Instructions: twice a day swish 15 mL for one minute and then gargle and spit out. Avoid food and drink for 30 minutes after using this rinse. No Action allopurinol 300 mg tablet 300 mg PO DAILY lisinopril-hydrochlorothiazide 10-12.5 mg tablet 1 tablet PO DAILY Imbruvica 420 mg tablet 420 mg PO DAILY clindamycin HCl 300 mg capsule 300 mg PO Q8H Qty: 20 0RF ibuprofen [IBU] 600 mg tablet 600 mg PO QID PRN (Reason: fever or
[2023-01-11] MEDS: KETOROLAC (*BKC) 60 MG/2 ML VIAL IM (16:32)
[2023-01-11] MEDS: CEPHALEXIN 500 MG CAPSULE PO (16:32)
== END 2023-01-11 16:50 | disposition home or self-care (01) ==
PROVIDERS: Emergency Provider Emergency Medicine; PCP Internal Medicine
DX: K02.9 Dental caries, unspecified (principal); K05.10 Chronic gingivitis, plaque induced; I10 Essential (primary) hypertension; Z85.72 Personal history of non-Hodgkin lymphomas; Z87.891 Personal history of nicotine dependence
CPT/HCPCS: 96372; 99284; A9270; J1100; J1885

== ENCOUNTER 2023-04-30 11:10 | Outpatient (CLI) | payer BC, SELFPAY ==
[2023-04-30 11:27] LABS: Basophils Absolute Auto 0.1 K/mm3 (0.0-0.1); Basophils Percent Auto 0.6 % (0.2-1.2); Eosinophils Absolute Auto 0.1 K/mm3 (0-0.3); Eosinophils Percent Auto 1.1 % (0-4.4); Hematocrit 45.9 % (42.0-52.0); Hemoglobin 15.2 g/dL (14.0-18.0); Immature Granulocyte Absolute 0.03 K/mm3 (0.00-0.031); Immature Granulocyte Percent A 0.2 % (0-0.5); Lymphocytes Percent Auto 60.5 % (18.3-44.2); Mean Corpuscular HGB Conc 33.1 g/dl (32-36); Mean Corpuscular Volume 93.5 fl (80-100); Mean Platelet Volume 10.5 fl (7.4-10.4); Monocytes Absolute Auto 0.4 K/mm3 (0.1-0.6); Monocytes Percent Auto 3.3 % (2.6-8.5); Neutrophils Absolute Auto 4.2 K/mm3 (1.3-6.7); Neutrophils Percent Auto 34.3 % (45.5-73.1); Platelet Count Result 141 k/mm3 (150-375); Red Blood Count 4.91 M/mm3 (4.6-6.20); Red Cell Distribution Width 13.4 % (11.5-14.5); White Blood Count 12.4 K/mm3 (4.5-10.0)
[2023-04-30 11:31] LABS: Blood Urea Nitrogen 22 mg/dL (8-26); Carbon Dioxide 28 mmol/L (22-30); Chloride 99 mmol/L (98-109); Estimated Glomerular Filt Rate 53; Glucose 108 mg/dL (70-105); Ionized Calcium (POC) 1.21 mmol/L (1.11-1.31); Potassium 4.3 mmol/L (3.5-4.9); Sodium 138 mmol/L (138-146)
[2023-04-30 14:49] LABS: Alanine Aminotransferase 17 U/L (6-50); Alkaline Phosphatase 60 U/L (38-126); Anion Gap 3 mmol/L (8-16); Aspartate Amino Transferase 17 U/L (17-59); Bilirubin,Total 0.6 mg/dL (0.2-1.3); Blood Urea Nitrogen 22 mg/dL (9-20); Carbon Dioxide 30 mmol/L (22-30); Chloride 102 mmol/L (98-107); Estimated Glomerular Filt Rate 58; Glucose 108 mg/dL (65-110); Lactate Dehydrogenase 141 U/L (120-246); Potassium 4.2 mmol/L (3.4-5.0); Sodium 135 mmol/L (137-145)
== END 2023-04-30 11:11 | disposition home or self-care (01) ==
LOC: ANHLAB 11:14
PROVIDERS: PCP Internal Medicine; Visit Provider Internal Medicine Hematology & Oncology
DX: C83.00 Small cell B-cell lymphoma, unspecified site (principal)
CPT/HCPCS: 36415; 80047; 80053; 83615; 85025

== ENCOUNTER 2023-06-19 07:54 | Outpatient (CLI) | payer BC, SELFPAY ==
[2023-06-19 08:18] LABS: Appearance Urine Clear (Clear); Bilirubin Urine Negative (Negative); Color Urine Yellow (Yellow); Glucose Urine UA Negative (Negative); Ketones Urine Negative (Negative); Leukocyte Esterase Ur Negative LEU/UL (Negative); Nitrate Urine Negative (Negative); Protein Urine Negative (Negative); Specific Grav Ur 1.025 (1.010-1.020); Urobilinogen Urine 0.2 mg/dL (0.2-1.0); pH Urine 6.5 (5.0-8.0)
[2023-06-19 08:19] LABS: Basophils Absolute Auto 0.11 K/mm3 (0.00-0.10); Basophils Percent Auto 0.8 % (0.0-1.0); Eosinophils Percent Auto 1.5 % (1.0-6.0); Hematocrit 46.3 % (40.0-54.0); Hemoglobin 14.8 g/dL (14.0-18.0); Immature Granulocyte Absolute 0.07 K/mm3 (0.00-0.00); Immature Granulocyte Percent A 0.5 % (0.0-0.0); Lymphocytes Absolute Auto 7.78 K/mm3 (1.10-4.50); Lymphocytes Percent Auto 57.6 % (18.0-42.0); Mean Corpuscular Hemoglobin 30.4 pg (27.0-31.0); Mean Corpuscular Volume 95.1 fL (78.0-102.0); Mean Platelet Volume 10.9 fl (8.7-11.0); Monocytes Absolute Auto 0.72 K/mm3 (0.10-0.90); Monocytes Percent Auto 5.3 % (2.0-11.0); Neutrophils Absolute Auto 4.6 K/mm3 (1.7-7.2); Neutrophils Percent Auto 34.3 % (50.0-70.0); Platelet Count Result 141 K/mm3 (150-420); Red Blood Count 4.87 M/mm3 (4.70-6.10); White Blood Count 13.5 K/mm3 (4.8-10.8)
[2023-06-19 08:23] LABS: Add Urine Microscopic? NO; Blood Urine Negative (Negative)
[2023-06-19 08:46] LABS: Alanine Aminotransferase 22 U/L (16-63); Albumin Level 3.5 g/dL (3.4-5.0); Alkaline Phosphatase 61 U/L (46-116); Anion Gap 2 mmol/L (8-16); Aspartate Amino Transferase < 10 U/L (15-37); Bilirubin,Total 0.5 mg/dL (0.00-1.00); Blood Urea Nitrogen 18 mg/dL (7-18); Calcium 8.1 mg/dL (8.5-10.1); Carbon Dioxide 35 mmol/L (21-32); Chloride 106 mmol/L (98-108); Cholesterol 156 mg/dL (0-200); Creatine Kinase 48 U/L (39-308); Estimated Glomerular Filt Rate > 60; Free T3 2.92 pg/mL (2.18-3.98); Free T4 Free Thyroxine 1.17 ng/dL (0.76-1.46); Glucose 81 mg/dL (70-99); HDL Direct 46 mg/dL (40-60); LDL Cholesterol Calculated 93 mg/dL (<130); Osmolality Calculated 296 mOsm/kg (285-295); Potassium 4.4 mmol/L (3.5-5.1); Prostate Specific Antigen 3.9 ng/mL (< OR = 4.0); Sodium 143 mmol/L (136-145); Thyroid Stimulating Hormone 1.76 uIU/mL (0.36-3.74); Total Protein 6.1 g/dL (6.4-8.2); Triglycerides 85 mg/dL (0-150)
== END 2023-06-19 07:55 | disposition home or self-care (01) ==
LOC: CHSLAB 07:55
PROVIDERS: PCP Internal Medicine; Visit Provider Internal Medicine
DX: N39.0 Urinary tract infection, site not specified (principal); I10 Essential (primary) hypertension; E78.5 Hyperlipidemia, unspecified; F52.21 Male erectile disorder; Z12.5 Encounter for screening for malignant neoplasm of prostate; R53.83 Other fatigue
CPT/HCPCS: 36415; 80053; 80061; 81003; 82550; 84153; 84439; 84443; 84481; 85025; G0103

== ENCOUNTER 2023-08-06 15:03 | Outpatient (CLI) | payer BC, SELFPAY ==
--- NOTE | ~2023-08-06 | CT_ITS ---
EXAMINATION: CT abdomen pelvis wo con DATE: 08/06/2023 15:43 INDICATION: Left flank pain and hematuria TECHNIQUE: Computed tomography (CT) of the abdomen and pelvis was performed without intravenous contr ast. The dose-length product (DLP) was 299.40 mGy-cm. Automated exposure control and iterative recons truction technique were employed. COMPARISON: 07/09/2020 FINDINGS: There is chronic atelectasis or scarring of the lingula. The liver, spleen, pancreas, gallb ladder, and adrenal glands are normal. The kidneys are unremarkable. No stones are identified in the kidneys, ureters, or bladder. No hydronephrosis or hydroureter. There is calcified atherosclerosis of the aorta and many of the other arteries. No pathologically enlarged abdominal or pelvic lymph nodes are identified. No free intraperitoneal gas or evidence of bowel obstruction. Again seen is a modera te-sized left inguinal hernia containing the left anterolateral portion of the urinary bladder with a n estimated one half of the urinary bladder contained within the inguinal hernia. The appendix is nor mal. IMPRESSION: 1. No urolithiasis identified. 2. Chronic moderate-sized left inguinal hernia containing an estimated one half of the urinary bladde r. 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 No urolithiasis identified. 2. Chronic moderate-sized left inguinal hernia containing an estimated one half of the urinary bladder.
== END 2023-08-06 15:04 | disposition home or self-care (01) ==
LOC: CHSIMG 15:06
PROVIDERS: PCP Internal Medicine; Visit Provider Internal Medicine
DX: R10.9 Unspecified abdominal pain (principal); R31.9 Hematuria, unspecified; K40.90 Unilateral inguinal hernia, without obstruction or gangrene, not specified as recurrent
CPT/HCPCS: 74176

== ENCOUNTER 2023-08-31 01:10 | Day surgery (SDC) | payer BC, MEDICAID, SELFPAY ==
[2023-08-23 11:14] VITALS: BMI 27.8
--- NOTE | 2023-08-23 11:18 | PC.NURSE ---
Report to the Outpatient Waiting Room, entrance under the green pavilion located off [facility], at time 0800 on date 08/31/23. Planned Procedure Time: 1000. Time changes happen often and if your time is changed the preop area will call you the afternoon before. - You and your visitor will be asked to self-screen and do not enter if you have any COVID symptoms. - A mask is optional within the hospital at this time. Patients may have clear liquids (water, carbonated beverages, clear teas, apple juice) until 3 hours prior to surgery (0700) with a maximum of 20 ounces. - No food from midnight until time of surgery Take the following medications with a SIP of water the morning of surgery: NONE DO NOT STOP ANY OF YOUR OTHER PRESCRIPTION MEDICATIONS PRIOR TO SURGERY ?EXCEPT THE FOLLOWING Medications to discontinue per physician: N/A Date to take last dose: N/A Please no make-up, nail senegalese, hairspray, perfume, deodorant, or body powder the day of surgery. No jewelry (including any body piercings) or valuables the day of surgery, leave them at home. Please take a shower or bath the night before, or the morning of, surgery with an antibacterial soap. Wear comfortable, loose fitting clothing. - Jewelry must be removed prior to entering the operating room. Rings and piercings that are not removed may be cut off. - The hospital will not accept responsibility for valuables. - Please leave all valuables, including medications, at home the day of surgery. If you are going home after surgery, a licensed inventory associate and driver must drive you home. - NO public transportation without another adult if you receive anesthesia. - We recommend that an adult stay with you for 24 hours following discharge. - We also recommend that you do not drive, make important decision, drink alcoholic beverages, or take any drugs that were not prescribed by your health care provider for at least 24 hours after your discharge time. Follow any additional instructions given to you from your surgeon. If you or anyone in your household have experienced Covid symptoms in the past week, please notify your surgeon or the nurse liaison at the phone number below for possible testing. Telephone instructions given to PT - CHARLES ROSAS and asked if any additional questions and then verbalized understanding. Patient advised to call surgeon office or pre surgery nurse liaison [phone] if any additional questions.
[2023-08-31] VITALS (11 sets, daily range): BP systolic 106–152; BP diastolic 48–94; PULSE 60–96; RESP 16–20; TEMP 36.1–36.3; O2SAT 97–100; BMI 26.9
--- NOTE | 2023-08-31 07:22 | ECG_ITS ---
Measurements Intervals Luana Rate: 56 P: 57 WY: 154 QRS: 35 QRSD: 120 T: 33 QT: 387 QTc: 376 Interpretive Statements SINUS BRADYCARDIA POSSIBLE RIGHT VENTRICULAR CONDUCTION DELAY [RSR (QR) IN V1/V2] NO PREVIOUS ECG AVAILABLE FOR COMPARISON Electronically Signed On 08-31-2023 15:14:04 [employer] by Rick Hanson M.D.
[2023-08-31] MEDS: ACETAMINOPHEN 500 MG TABLET 1000 MG PO (08:31)
[2023-08-31] MEDS: KETOROLAC 15 MG/ML VIAL (*BKC) IV PUSH (08:32)
[2023-08-31] MEDS: LACTATED RINGERS 1,000 ML 30 ML IV CONT ×3 (08:32→13:25)
--- NOTE | 2023-08-31 09:07 | WPDHPUPDATE1 ---
History and Physical Update Update Date/Time: 08/31/23 09:07 History and Physical has been reviewed, including an updated exam of the patient. There are NO changes in the patient's condition. Risks, benefits, and alternatives have been discussed and questions answered. Patient agrees to proceed with procedure.
--- NOTE | 2023-08-31 09:11 | WPDANESEPPF ---
Anes - Initial Pre Proc Eval Procedure: Operation Date: 08/31/23 10:00 Proposed Procedures p Laparoscopic Left Inguinal Hernia Repair with Mesh, Davinci Assisted - Js Lino DO Date/Time: 08/31/23 09:11 Surgeon: Js Lino DO Pre Op Diagnosis: Lt Ing Hernia Patient Data Age: 53 Gender: M Height: 1.83 m Weight: 89.9 kg Last Vital Signs Temp 97.4 F L 08/31/23 08:39 Pulse 60 08/31/23 08:39 Resp 16 08/31/23 08:39 BP 149/82 H 08/31/23 08:39 Pulse Ox 100 08/31/23 08:39 O2 Del Method Room Air 08/31/23 08:39 Allergies Allergy/AdvReac Type Severity Reaction Status Date / Time Penicillins Allergy Intermediate Hives Verified 08/31/23 08:38 Home Medications Medication Instructions Recorded Confirmed Type allopurinol 300 mg tablet 300 mg PO HS 01/13/20 08/23/23 History ibrutinib 420 mg tablet (Imbruvica) 420 mg PO HS 01/13/20 08/23/23 History lisinopril 10 1 tablet PO DAILY 01/13/20 08/23/23 History mg-hydrochlorothiazide 12.5 mg tablet Laboratory Tests 08/31/23 08:11 Sodium Pending Potassium Pending Chloride Pending Carbon Dioxide Pending Anion Gap Pending BUN Pending Creatinine Pending Estim Creat Clear Calc Pending Estimated GFR Pending Glucose Pending Calcium Pending Blood Type Pending Antibody Screen Pending Patient hx anesthesia problems: none Family hx anesthesia problems: none Results Review: All pre-operative results and documents have been reviewed as part of the pre-operative evaluation. [facility] Past Medical History Medical History (Updated 08/19/23 @ 10:18 by Anne Kerr CMA) Gout Hypertension Lymphoma Surgical History Surgical History (Updated 08/19/23 @ 10:12 by Anne Kerr CMA) History of removal of Port-a-Cath Port placement done by Dr. Palumbo in 2016. Port removed by Dr. Wayne in 2018. Social History Social History Smoking packs per day: 1 Smoking cigarettes per day: 20.0 Years smoked: 31 Smoking pack-years: 31.00 Smoking status: Current some day smoker Tobacco type: cigarettes Smoking end date: 05/19/15 Additional smoking assessment comments: QUIT 1 PPD 2014, NOW 1 CIGARETTE EVERY FEW DAYS Alcohol intake: never Substance use: never Substance use type: does not use Living arrangements: with family Gender identity (if verbalized by the patient): Male Sexual Orientation (if Verbalized by the Patient): Straight or Heterosexual Spiritual care concerns: No Anes - Eval Final PreProcedure Day of Procedure 08/31/23 09:11 Patient weight: normal Heart: regular rate and rhythm Lungs: clear to auscultation Airway: Mallampati scale class II (poor dentition) Neurological: alert and oriented Last oral intake: >/= 8 hours ASA classification: III Emergent: no Anesthetic plan: proceed Anesthesia type and monitoring: general ETT and standard monitoring Results Review: All pre-operative results and documents have been reviewed as part of the pre-operative evaluation. Informed Consent: The patient's anesthetic plan and its attendant risks and benefits were discussed with the patient/family/POA. Questions were solicited and answers provided to the satisfaction of the patient/family/POA.
[2023-08-31 09:37] LABS: Anion Gap 0 mmol/L (8-16); Blood Urea Nitrogen 19 mg/dL (9-20); Calcium 8.7 mg/dL (8.4-10.2); Carbon Dioxide 28 mmol/L (22-30); Chloride 108 mmol/L (98-107); Estimated CRCL calculation 75 ml/min; Estimated Glomerular Filt Rate > 60; Glucose 86 mg/dL (65-110); Potassium 4.4 mmol/L (3.4-5.0); Sodium 136 mmol/L (137-145)
[2023-08-31] MEDS: ceFAZolin 2 GM/D5W 50 ML 2 GM/50 ML BAG IVPB (09:51)
[2023-08-31] MEDS: BUPIVACAINE/EPINEPHRINE 0.5% 50 ML VIAL 30 ML INFILTRATE (10:23)
--- NOTE | 2023-08-31 11:00 | W.PM.PROC2 ---
Procedure Note - Detailed Date of Procedure 08/31/23 Pre-op Diagnosis Left inguinal hernia Post-op Diagnosis Same (Direct left inguinal hernia) Procedure Performed Laparoscopic left inguinal hernia repair with mesh, da Jonathan assisted Surgeon Js Lino DO Anesthesia General and Local (0.5% bupivacaine with epinephrine) Indications This is a 53-year-old man who presented with a left inguinal hernia. Patient states he had noticed a bulge in this region for about the last 18 years, but over the past couple months this has become worse. He is now having some groin pain radiating to his flank and he is also having some difficulty urinating. Some of his symptoms are relieved once he is able to urinate. CT of his abdomen and pelvis was performed and this showed evidence of a large left inguinal hernia containing about half of his bladder. Discussions were made with the patient about treatment options and decision was made to proceed with robotic assisted laparoscopic left inguinal repair with mesh. Findings Laparoscopic left inguinal hernia repair was performed. The patient was found to have a large direct left inguinal hernia. A Webb was placed preoperatively to completely decompress the bladder. I was then able to reduce the bladder from within the hernia defect and performed the repair. A robotic transabdominal preperitoneal approach was utilized for repair. Once a wide enough preperitoneal pocket was created, I then placed an extra-large left 3DMax mid mesh overlying the entire left myopectineal orifice. There was no evidence of a right inguinal hernia and no specimens were obtained for pathology. Description of Procedure Procedure as well as risks, benefits, and alternatives were discussed with the patient. Written consent was obtained and placed in chart prior to procedure. Patient was brought back to surgical suite. He was placed supine on operating table. Time-out was done to confirm patient and procedure. He was then intubated by Anesthesia Department. His abdomen was prepped and draped in sterile fashion using chlorhexidine prep. 0.5% bupivacaine with epinephrine was infiltrated at each location for incision. An 8 mm incision was made in the left lateral abdomen, and a 5 mm Optiview trocar was advanced through the abdominal layers under direct visualization. Once inside the abdominal cavity, carbon dioxide insufflation was used to create a pneumoperitoneum. A camera was inserted and the abdominal cavity was inspected. The patient was placed in slight Trendelenburg position. An 8 millimeter incision was made on the right lateral abdomen and an 8 millimeter trocar was inserted under direct visualization. Another 8 millimeter incision was made just superior to the umbilicus and an 8 millimeter trocar was inserted under direct visualization. The 5 mm port was then removed and this was replaced with another 8 mm robotic port. The robotic arms were brought up to the patient's bedside and secured to the ports. The camera and instruments were inserted. I then moved over to the robotic console and took control of the camera and instruments. After careful inspection of the abdominal cavity, I began scoring the peritoneum along the left lower quadrant using scissors with electrocautery. The preperitoneal plane was entered and this was carefully dissected caudally along the inferior epigastric vessels. Careful dissection with scissors with electrocautery and blunt dissection was used to continue this dissection. I dissected far enough laterally to allow for mesh placement, and also dissected medially to identify the pubic arch and Jose's ligament. The hernia sac was identified and carefully dissected posteriorly. The cord contents were also identified and the peritoneum was carefully dissected far enough posteriorly to allow for mesh placement. Once an adequate pocket was created, I then placed the mesh within the preperitoneal pocket and care
== END 2023-08-31 14:50 | disposition home or self-care (01) ==
PROVIDERS: Anesthesiology; PCP Internal Medicine; Visit Provider Surgery
PROC: 8E0Y4CZ Robotic Assisted Procedure of Lower Extremity, Percutaneous Endoscopic Approach (ICD-10-PCS; CPT 49650; principal; 2023-08-31 10:00)
DX: K40.90 Unilateral inguinal hernia, without obstruction or gangrene, not specified as recurrent (principal); I10 Essential (primary) hypertension; M10.9 Gout, unspecified; Z85.72 Personal history of non-Hodgkin lymphomas; F17.210 Nicotine dependence, cigarettes, uncomplicated
CPT/HCPCS: 49650; S2900; 36415; 80048; 86850; 86900; 86901; 93005; A9270; C1781; J0690; J1100; J1885; J2250; J2405; J2704; J3010; J7120

== ENCOUNTER 2023-11-05 10:29 | Outpatient (CLI) | payer BC, SELFPAY ==
[2023-11-05 10:42] LABS: Basophils Absolute Auto 0.1 K/mm3 (0.0-0.1); Basophils Percent Auto 0.8 % (0.2-1.2); Eosinophils Absolute Auto 0.2 K/mm3 (0-0.3); Eosinophils Percent Auto 1.6 % (0-4.4); Hematocrit 46.7 % (42.0-52.0); Hemoglobin 15.5 g/dL (14.0-18.0); Immature Granulocyte Absolute 0.05 K/mm3 (0.00-0.031); Immature Granulocyte Percent A 0.5 % (0-0.5); Lymphocytes Absolute Auto 4.57 K/mm3 (0.9-3.2); Mean Corpuscular HGB Conc 33.2 g/dl (32-36); Mean Corpuscular Hemoglobin 30.9 pg (26-34); Mean Platelet Volume 10.6 fl (7.4-10.4); Monocytes Absolute Auto 0.7 K/mm3 (0.1-0.6); Monocytes Percent Auto 6.9 % (2.6-8.5); Neutrophils Absolute Auto 4.6 K/mm3 (1.3-6.7); Neutrophils Percent Auto 45.2 % (45.5-73.1); Platelet Count Result 147 k/mm3 (150-375); Red Blood Count 5.02 M/mm3 (4.6-6.20); Red Cell Distribution Width 13.6 % (11.5-14.5); White Blood Count 10.2 K/mm3 (4.5-10.0)
[2023-11-05 10:46] LABS: Blood Urea Nitrogen 24 mg/dL (8-26); Carbon Dioxide 30 mmol/L (22-30); Chloride 101 mmol/L (98-109); Estimated Glomerular Filt Rate 58; Glucose 92 mg/dL (70-105); Ionized Calcium (POC) 1.27 mmol/L (1.11-1.31); Potassium 4.3 mmol/L (3.5-4.9); Sodium 139 mmol/L (138-146)
== END 2023-11-05 10:30 | disposition home or self-care (01) ==
LOC: ANHLAB 10:31
PROVIDERS: PCP Internal Medicine; Visit Provider Internal Medicine Hematology & Oncology
DX: C83.00 Small cell B-cell lymphoma, unspecified site (principal)
CPT/HCPCS: 36415; 80047; 85025

== ENCOUNTER 2024-05-12 10:22 | Outpatient (CLI) | payer BC, SELFPAY ==
[2024-05-12 10:44] LABS: Blood Urea Nitrogen 22 mg/dL (8-26); Carbon Dioxide 27 mmol/L (22-30); Chloride 104 mmol/L (98-109); Estimated Glomerular Filt Rate 57; Glucose 73 mg/dL (70-105); Ionized Calcium (POC) 1.24 mmol/L (1.11-1.31); Potassium 4.3 mmol/L (3.5-4.9); Sodium 141 mmol/L (138-146)
[2024-05-12 10:48] LABS: Basophils Absolute Auto 0.1 K/mm3 (0.0-0.1); Basophils Percent Auto 0.7 % (0.2-1.2); Eosinophils Absolute Auto 0.2 K/mm3 (0-0.3); Eosinophils Percent Auto 1.6 % (0-4.4); Hematocrit 46.1 % (42.0-52.0); Hemoglobin 15.1 g/dL (14.0-18.0); Immature Granulocyte Absolute 0.02 K/mm3 (0.00-0.031); Immature Granulocyte Percent A 0.2 % (0-0.5); Immature Platelet Fraction Pct 6.9 % (0.9-11.2); Lymphocytes Absolute Auto 5.05 K/mm3 (0.9-3.2); Lymphocytes Percent Auto 48.5 % (18.3-44.2); Mean Corpuscular HGB Conc 32.8 g/dl (32-36); Mean Corpuscular Hemoglobin 30.6 pg (26-34); Mean Corpuscular Volume 93.3 fl (80-100); Monocytes Absolute Auto 0.6 K/mm3 (0.1-0.6); Monocytes Percent Auto 5.7 % (2.6-8.5); Neutrophils Absolute Auto 4.5 K/mm3 (1.3-6.7); Neutrophils Percent Auto 43.3 % (45.5-73.1); Platelet Count Result 129 k/mm3 (150-375); Red Blood Count 4.94 M/mm3 (4.6-6.20); Red Cell Distribution Width 14.1 % (11.5-14.5); White Blood Count 10.4 K/mm3 (4.5-10.0)
[2024-05-12 10:50] LABS: Platelet Estimate Decreased (Adequate)
[2024-05-12 10:51] LABS: Atypical Lymphocytes Present; Schistocytes None Seen
[2024-05-12 13:36] LABS: Alanine Aminotransferase 16 U/L (6-50); Albumin Level 3.7 g/dL (3.5-5.1); Alkaline Phosphatase 61 U/L (38-126); Anion Gap 6 mmol/L (4-12); Aspartate Amino Transferase 18 U/L (17-59); Bilirubin,Total 0.7 mg/dL (0.2-1.3); Blood Urea Nitrogen 23 mg/dL (9-20); Calcium 8.6 mg/dL (8.4-10.2); Carbon Dioxide 29 mmol/L (22-30); Chloride 105 mmol/L (98-107); Estimated Glomerular Filt Rate 57; Glucose 72 mg/dL (65-110); Potassium 4.3 mmol/L (3.4-5.0); Sodium 140 mmol/L (137-145)
== END 2024-05-12 10:23 | disposition home or self-care (01) ==
LOC: ANHLAB 10:24
PROVIDERS: PCP Internal Medicine; Visit Provider Internal Medicine Hematology & Oncology
DX: C83.00 Small cell B-cell lymphoma, unspecified site (principal)
CPT/HCPCS: 36415; 80047; 80053; 85025; 85055

== ENCOUNTER 2024-08-15 18:32 | Outpatient (CLI) | payer BC, SELFPAY ==
--- OUTSIDE RECORDS SUMMARY | 2024-08-15 18:36 | XMS_ITS | Clinical Summary ---
Author Organization [facility] Address [address] [place] [address]. 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 Gender Identity Not on file Sexual Orientation Not on file Plan of Treatment Health Maintenance Due Date Last Done Comments Colorectal Cancer Screening Colonoscopy (10 Years) 1969 Annual Physical 02/26/1972 Hepatitis C 1987 DTaP, Tdap and Td Vaccines ( 1 - Tdap) 02/26/1988 Hepatitis B Vaccines (1 of 3 - 19+ 3-dose series) 02/26/1988 Zoster Vaccines (1 of 2) 2019 COVID-19 Vaccine (2023-2 5 season) 2024 Influenza Adult (#1) 2024 Meningococcal B Vaccine Aged Out No l onger eligible based on patient's age to complete this topic Meningococcal Vaccine Aged Out No samra owen eligible based on patient's age to complete this topic Pneumococcal Vaccine: Pediat rics (0 to 5 Years) and At-Risk Patients (6 to 64 Years) Aged Out No longer eligible b ased on patient's age to complete this topic RSV Immunizations Under 20 Months Aged Out No longer eligible based on patient's age to complete this topic Additional Health Concerns Infection Onset Date Last Indicated MRSA 08/03/2018 08/03/2018 Care Teams Grinding Room Inspector Relationship Specialty Start Date End Date Kodak Krueger MD [address] [place] [id number] PCP - General INTERNAL MEDICINE 10/27/18
--- OUTSIDE RECORDS SUMMARY | 2024-08-15 18:36 | XMS_ITS | Encounter Summary ---
Author Organization [facility] Address [address] [place] [address]. 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
--- OUTSIDE RECORDS SUMMARY | 2024-08-15 18:36 | XMS_ITS | Data Portability ---
Author Organization [place] - [facility] OFFICE Address [address] [place] [address] Care Team Providers Care Perfect Bind Machine Operator Name Role Phone CASH HIGHTOWER Primary Care Provider [phone] Assessment No assessment recorded. Plan of Treatment Reminders Order Date Submit Date Provider Last Modified By Organization Details Last Modified Time Details Appointments None recorded. Lab None recorded. Referral None recorded. Procedures None recorded. Surgeries None recorded. Imaging electrocard iogram 2019 020 [email or web address] Not available 0 09:16:10 Medication Orders None recorded. Patient TargetsNo targets recorded. Patient Instructions Encounter Date Encounter Id Patient Instructions Last Modified By Organization Details Last Modified Time 04/01/2020 [id number] Exercise advised Low cholesterol diet advised Low sodium diet advised [email or web address] Not available 04/03/2020 17:31:12 Scribed by Oswald Quinn [facility] [email or web address] Not available 04/03/2020 17:31:06 04/22/2020 [id number] Exercise advised Low cholesterol diet advised Low sodium diet advised [email or web address] Not available 04/22/2020 15:10:25 Patient was seen and evaluated by Kristyn Quinn [facility]. Plan of care was discussed with collaborating physician and note cosigned by Dr. Greg Singh. [email or web address] Not available 04/22/2020 15:10:58 Reason for Referral None Reported. Results Created Date Observation Date Name Description Value Unit Range Abnormal Flag Note LastModifiedBy Organization Detail LastModifiedTime 04/02/20 20 03/21/2020 US, jose d x, liudmila s, lower extre mity No observ ation record ed. [email or web address] Not Available 2019 16:11:22 05/08/20 20 04/12/2020 US, duple x, venou s, lower extre mity No observ ation record ed. [email or web address] Not Available 2019 11:44:26 Result Notes None recorded. Problems Name Problem SNOMED Code Status Onset Date Resolution Date Notes Provider Name and Address Organization Details Recorded Time Superficial thrombophlebit is 3068272 Active 2020 Long [place] null, [place] - [facility] 1 14:08:05 Essential hypertension 67398958 Active 2020 [place], [place] - [facility] 1 14:08:13 Gout 73509661 Active 2019 Steph [place] null, [place] - [facility] 0 11:39:12 Multiple sclerosis 97547983 Active 2019 Steph [place] null, [place] - [facility] 0 11:39:23 Lymphoma finding 826570395 Active 2019 Steph Thong null, [place] - [facility] 0 11:39:45 Problem Notes None recorded. Procedures Surgical History None recorded. Imaging Results Imaging Date Name Status LastModified by Organiz ation Details LastModified Time 03/21/2020 US, duplex, venous, lower extremity completed Information not available 04/02/2020 16:11:22 04/12/2020 US, duplex, venous, lower extremity completed Information not available 05/08/2020 11:44:26 Procedure Notes None recorded. Medical Equipment None Reported. Allergies Allergen ID Allergen Name Allergen Category Reaction Reaction Severity Criticality Documentation Date Start Date Code Code System Note Provider Name and Address Organization Details Recorded Time Product containin g penicilli n and antibioti c (product) medicatio n Not available Not available Not available 03/28/2020 67696 05 SNOMED Steph Thong null, [place] - [facility] 0 11:38:53 Medications Name Sig Start Date Stop Date Status Note LastModified by Organization Details LastModified Time cyclobenzap rine 10 mg tablet TAKE 1 TABLET BY MOUTH 3 4 TIMES PER DAY NEEDED active Not Available Not Available No t Available clindamycin HCl 300 mg capsule active Not Available Not Available Not Available Tylenol Arthritis Pain 650 mg tablet,exte nded release Take 2 tablets every 8 hours by oral route as directed. 04/22 completed Not Available Not Available Not Available ciprofloxac in 500 mg tablet Take 1 tablet every 12 hours by oral route as directed. 04/22 completed Not Available Not Available Not Available sulfamethox azole 800 mg-trimetho prim 160 mg tablet 04/22 completed Not Available Not Available Not Available tramadol 50 mg tablet active Not Available Not Available No t Available ketorolac 10 mg tablet TAKE 1 TABLET BY MOUTH EVERY 4 6 HOURS NEEDED, MAX 4 TABLETS DAILY active Not Available Not Available No t Available diclofenac sodium 75 mg tablet,jair yed release active Not Available Not Available Not Available allopurinol 300 mg tablet TAKE 1 TABLET BY MOUTH EVERY DAY active Not Available Not Available No t Available lisinopril 10 mg-hydrochl orothiazide 12.5 mg tablet Take 1 tablet every day by oral route as directed. active Not Available Not Available No t Available ibuprofen 600 mg tablet Take 1 tablet 3 times a day by oral route as needed. 04/22 completed Not Available Not Available Not Available methylpredn isolone 4 mg tablets in a dose pack TAKE 6 TABLETS ON DAY 1 DIRECTED ON PACKAGE AND DECREASE BY 1 TAB EACH DAY FOR A TOTAL OF 6 DAYS active Not Available Not Available No t Available sildenafil (pulmonary hypertensio n) 20 mg tablet Take 1 tablet every day by oral route as directed. 04/22 completed Not Available Not Available Not Available Bactrim DS 1 tablet PO Q 12H 04/22 completed Not Available Not Available Not Available Imbruvica 420 mg tablet Take 1 tablet every day by oral route as directed. active Not Available Not Available No t Available Vitals Date Recorded Heart rate Oxygen saturation Oxygen saturation in Arterial blood by Pulse oximetry Body height Body mass index (BMI) Body weight Systolic blood pressure Diastolic blood pressure Provider Name and Address Organization Details Last Updated DateTime 0 73 /min 98 % 98 % 182.88 cm 27 kg/m2 93367.3 2 g 140 mm[Hg] 82 mm[Hg] Steph Benito [place] - [facility] 0 15:55:05 Date Recorded Body height Body temperature Body mass index (BMI) Body weight Provider Name and Address Organization Details Last Updated DateTime 04/22/2020 182.88 cm 96.7 [degF] 26.8 kg/m2 39005.57 g Steph Benito [facility] 04/22/2020 14:52:22 Date Recorded Heart rate Oxygen saturation Oxygen saturation in Arterial blood by Pulse oximetry Systolic blood pressure Diastolic blood pressure Provider Name and Address Organization Details Last Updated DateTime 0 78 /min 98 % 98 % 120 mm[Hg] 70 mm[Hg] Kristyn Quinn [facility] 0 14:55:24 Social History Question Answer Notes LastModified by [employer] Details LastModified Time Tobacco Smoking Status Former Smoker Steph Benito [facility] 04/01/2020 15:51:53 What Is Your Level Of Alcohol Consumption? Occasional [email or web address] Information not available 04/01/2020 What Is Your Level Of Caffeine Consumption? Occasional [email or web address] Information not available 04/01/2020 How Much Tobacco Do You Chew? None [email or web address] Information not available 04/01/2020 What Type Of Diet Are You Following? REGULAR [email or web address] Information not available 04/01/2020 Which Illicit Or Recreational Drugs Have You Used? None Information not available 04/01/2020 Do You Or Have You Ever Used E-cigarettes Or Vape? Never Used Electronic Cigarettes [email or web address] Information not available 04/01/2020 Live Alone Or With Others? With Others [email or web address] Information not available 04/01/2020 Marital Status Informatio n not available 04/01/2020 What Was The Date Of Your Most Recent Tobacco Screening? 04/22/2020 [email or web address] Information not available 11/16/2020 How Many Children Do You Have? 2 [email or web address] Information not available 04/01/2020 Do You Or Have You Ever Used Smokeless Tobacco? Never Used Smokeless Tobacco [email or web address] Information not available 04/01/2020 General Stress Level Medium [email or web address] Information not available 04/01/2020 Sex: Unknown Functional Status Question Answer Note LastModified by [employer] Details LastModified Time What is your exercise level? Occasional [email or web address] Information not available 04/01/2020 Mental Status None recorded. Family History Nothing Reported. Medical History Condition Response Hypertension Y Past Encounters Encounter ID Performer Location Encounter Start Date Encounter Closed Date Diagnosis/Indication Diagnosis SNOMED-CT Code Diagnosis ICD10 Code Diagnosis Note [id number] Jennifer Navarrete [place] [facility] [address] [place] [address] 04/01/2020 15:28:28 04/04/2020 13:03:49 Follow-up visit 606740505 Z09 Superficia l thrombophlebitis 5503380 I80.9 I80.3 Improved with ibuprofen and antibiotic sVenous doppler 03/21/2020 showed no DVTContinu e ibuprofen, will repeat venous doppler. Essential hypertension 84551464 I10 Controlled [id number] Kristyn Quinn [facility] [address] [place] [address] 04/22/2020 14:27:25 04/22/2020 15:32:10 Superficial thrombophlebitis 9943476 I80.9 I80.3 ResolvedVe nous doppler 03/21/2020 showed no DVTRepeat venous doppler 04/17/[address] Singh Continue ibuprofen PRN Essential hypertension 15849267 I10 Well controlled with current regimen Health Concerns Section Related Observation LastModified by Organization Detai ls LastModified Time None Recorded Concern Status LastModified by Organization Details LastModified Time None Recorded Advance Directives Directive None Recorded Payers Encounter Date Sequence Insurance Name Policy Number Policy Lanier Covered Member ID Lanier Member ID Guarantor Name 04/01/2020 1 *SELF PAY* Asif 04/22/2020 1 [employer] ([employer]) [id number] Taras Kerr [id number] Taras Kerr Notes Date Note Type Note Provider Name and Address Organization Details Recorded Time 04/01/2020 text/html 04/01/2020 CC: right leg pain 50-year-old male with PMH of gout and HTN presents for cardiac consultation for right leg pain. He was in [place] [facility] 03/21/2020 with right leg/groin pain. DVT was ruled out. Appears to have superficial phlebitis in addition to cellulitis. He was discharged with antibiotics and ibuprofen. Appears much better today, continues to have some pain. Localized swelling and tenderness in the right thigh. No chest pain. No shortness of breath at rest. No dyspnea on exertion. No orthopnea. No PND's. No dizziness. No palpitation. No syncope or near syncope. No nausea and vomiting. No side effects from medications. Results from this visit, or from the past: 03/21/20 KYLE DOP: No deep venous thrombosis of right lower extremity. Focal thrombosis involving a superficial vein in the medial thigh. 03/21/20 CBC: WBC 35.2, HGB 15.1, HCT 45.2, PLT 64845 PT/INR: PT 13.8, INR 1.109 BMP: NA 133, K 4.1, CL 101, CO2 24, GLU 118, BUN 16, CR 1.30 Jennifer Ivy null, [facility] 04/15/2020 10:40:04 04/22/2020 text/html 04/01/2020 CC: right leg pain 50-year-old male with PMH of gout and HTN presents for cardiac consultation for right leg pain. He was in [place] [facility] 03/21/2020 with right leg/groin pain. DVT was ruled out. Appeared to have superficial phlebitis in addition to cellulitis. He was discharged with antibiotics and ibuprofen. Appears much better today, continues to have some pain. Localized swelling and tenderness in the right thigh. Since then his symptoms have resolved. He denies erythema, pain, and swelling to that area. 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 No chest pain. No shortness of breath at rest. No dyspnea on exertion. No orthopnea. No PND's. No dizziness. No palpitation. No syncope or near syncope. No nausea and vomiting. No side effects from medications. Results from this visit, or from the past: 03/21/20 KYLE DOP: No deep venous thrombosis of right lower extremity. Focal thrombosis involving a superficial vein in the medial thigh. 03/21/20 CBC: WBC 35.2, HGB 15.1, HCT 45.2, PLT 80066 PT/INR: PT 13.8, INR 1. BMP: NA 133, K 4.1, CL 101, CO2 24, GLU 118, BUN 16, CR 1.30 Kristyn Quinn SECURITY SYSTEM ANALYST-BC null, [facility] 04/22/2020 15:32:08
--- OUTSIDE RECORDS SUMMARY | 2024-08-15 18:36 | XMS_ITS | Clinical Summary ---
Author Organization [facility] Address [address] [place] [address] Care Team Providers Care Slat Basket Maker Helper Name Role Phone Kodak Krueger MD Primary Care Provider + Allergies Active Allergy Reactions Criticality Noted Date Comments Penicillins Shortness of Breath/Wheezing High 2015 Medications lisinopril-hydro CHLOROthiazide (ZESTORETIC) 10-12.5 mg tablet 9 Active acetaminophen (TYLENOL) 500 mg tablet Take 500 mg by mouth every 6 hours as needed. 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 Cancer Staging:Clinical stage from 06/03/2016:Stage IV- Unsigned Generalized lymphadenopathy 05/26/2016 Benign hypertension 05/26/2016 Multiple sclerosis 05/26/2016 Encounters Date Type Department Care Team Description 08/10/2024 External Device Data STL ABSTRACTION Provider, Abstract 08/09/2024 External Device Data STL ABSTRACTION Provider, Abstract 08/08/2024 External Device Data STL ABSTRACTION Provider, Abstract 08/01/2024 External Device Data STL ABSTRACTION Provider, Abstract 07/31/2024 Specialty Pharmacy [facility] [address] [place] [phone] Veronica Rodas, PHARMACIST 07/27/2024 Refill [facility] - [place] [address] [place] [address] Jitendra Fontenot MD Lymphoma, small lymphocytic (CMS/HCC) 07/14/2024 Specialty Pharmacy [facility] [address] [place] [phone] Veronica Rodas, PHARMACIST Specialty Pharmacy Refill Coordination 07/13/2024 Refill [facility] - [place] [address] [place] [address] Jitendra Fontenot MD Lymphoma, small lymphocytic (CMS/HCC) 06/20/2024 External Device Data STL ABSTRACTION Provider, Abstract 06/16/2024 Specialty Pharmacy [facility] [address] [place] [phone] Whitney Rowley PHARMACIST Specialty Pharmacy Refill Coordination 06/09/2024 Refill [facility] - [place] [address] [place] [address] Jitendra Fontenot MD Lymphoma, small lymphocytic (CMS/HCC) 05/17/2024 External Device Data STL ABSTRACTION Provider, Abstract 05/17/2024 Specialty Pharmacy [facility] [address] [place] [phone] Whitney Rowley PHARMACIST Specialty Pharmacy Refill Coordination 05/15/2024 Orders Only [facility] - [place] [address] [place] [address] Jitendra Fontenot MD from Last 3 Months Family History Medical History Relation Name Comments Heart Disease Father Heart Disease Mother Relation Name Status Comments Father Mother Sister Alive Social History Tobacco Use Types Packs/Day Years Used Date Smoking Tobacco: Former Cigarettes Q uit: 02/24/2016 Smokeless Tobacco: Never Tobacco Cessation:Counseling Given: Not Answered Alcohol Use Standard Drinks/Week Comments Yes 0 (1 standard drink = 0.6 oz pur e alcohol) Sex and Gender Information Value Date Recorded Sex Assigned at Not on file Legal Sex Male 2:11 PM NIGHT GUARD Gender Identity Not on file Sexual Orientation Not on file Last Filed Vital Signs Vital Sign Reading Time Taken Comments Blood Pressure 118/67 05/12/2024 10:45 AM CDT Pulse 67 05/12/2024 10:45 AM CDT Temperature 36.6 ??C (97.8 ??F) 05/12/2024 10:45 AM C DT Respiratory Rate 18 05/12/2024 10:45 AM CDT Oxygen Saturation 98% 05/12/2024 10:45 AM CDT Inhaled Oxygen Concentration - - Weight 94.3 kg (208 lb) 05/12/2024 10:45 AM CDT Height 182.9 cm (6') 11/07/2021 9:40 AM CDT Body Mass Index 28.21 11/07/2021 9:40 AM CDT Plan of Treatment Upcoming Encounters Date Type Department Care Team (Late st Contact Info) Description 11/10/2024 9:15 AM CDT Office Visit [facility] - [place] [address] [facility] [address] [place] [address] Jitendra Fontenot MD [address] [place] [address] Health Maintenance Due Date Last Done Comments Pre-Diabetes and Diabetes Screening 1969 DTAP/TDAP/TD VACCINES (1 - Tdap) 02/26/1988 HEPATITIS B VACCINES (1 of 3 - 19+ 3-dose series) 02/26/1988 COLORECTAL SCREENING 2014 Colorectal Cancer Screening 2014 FIT-DNA Q 3 years 2014 FIT/FOBT Q 1 year 2014 Flex Sig/CT Colonography Q 5 years 2014 ZOSTER VACCINE (1 of 2) 2019 INFLUENZA VACCINE (#1) 2024 PNEUMOCOCCAL VACCINE 0-64 YEARS Aged Out No longer eligible based on patient's age to complete this topic Insurance [place] [place] [address] [facility] MED[place] RX EXPRESS SCRIPTS Express RX PRIME THERAPEUTICS Medicaid RX RELAYHEALTH Commercial Care Teams Slat Basket Maker Helper Relationship Specialty Start Date End Date Kodak Krueger MD [address] [place] [address] PCP - General Internal Medicine 05/26/16
[2024-08-15 18:50] LABS: Basophils Absolute Auto 0.08 K/mm3 (0.00-0.10); Basophils Percent Auto 0.8 % (0.0-1.0); Eosinophils Absolute Auto 0.08 K/mm3 (0.02-0.50); Eosinophils Percent Auto 0.8 % (1.0-6.0); Hematocrit 45.4 % (40.0-54.0); Immature Granulocyte Absolute 0.03 K/mm3 (0.00-0.00); Immature Granulocyte Percent A 0.3 % (0.0-0.0); Lymphocytes Absolute Auto 3.51 K/mm3 (1.10-4.50); Lymphocytes Percent Auto 35.3 % (18.0-42.0); Mean Corpuscular Hemoglobin 30.4 pg (27.0-31.0); Mean Corpuscular Volume 92.1 fL (78.0-102.0); Mean Platelet Volume 10.8 fl (8.7-11.0); Monocytes Percent Auto 9.1 % (2.0-11.0); Neutrophils Absolute Auto 5.33 K/mm3 (1.70-7.20); Neutrophils Percent Auto 53.7 % (50.0-70.0); Platelet Count Result 146 K/mm3 (150-420); Red Blood Count 4.93 M/mm3 (4.70-6.10); White Blood Count 9.9 K/mm3 (4.8-10.8)
[2024-08-15 19:33] LABS: Alanine Aminotransferase 19 U/L (16-63); Albumin Level 3.8 g/dL (3.4-5.0); Alkaline Phosphatase 80 U/L (46-116); Anion Gap 9 mmol/L (4-12); Aspartate Amino Transferase 13 U/L (15-37); Bilirubin,Total 0.5 mg/dL (0.00-1.00); Blood Urea Nitrogen 18 mg/dL (7-18); Calcium 8.5 mg/dL (8.5-10.1); Carbon Dioxide 29 mmol/L (21-32); Chloride 99 mmol/L (98-108); Cholesterol 159 mg/dL (0-200); Estimated Glomerular Filt Rate 51; Glucose 91 mg/dL (70-99); HDL Direct 45 mg/dL (40-60); LDL Cholesterol Calculated 75 mg/dL (<130); Osmolality Calculated 285 mOsm/kg (285-295); Potassium 4.1 mmol/L (3.5-5.1); Prostate Specific Antigen 3.5 ng/mL (< OR = 4.0); Sodium 137 mmol/L (136-145); Total Protein 6.3 g/dL (6.4-8.2); Triglycerides 197 mg/dL (0-150)
== END 2024-08-15 18:33 | disposition home or self-care (01) ==
LOC: CHSLAB 18:35
PROVIDERS: PCP Internal Medicine; Visit Provider Internal Medicine
DX: Z12.5 Encounter for screening for malignant neoplasm of prostate (principal); I10 Essential (primary) hypertension; E78.2 Mixed hyperlipidemia
CPT/HCPCS: 36415; 80053; 80061; 84153; 85025; G0103

== ENCOUNTER 2024-09-29 08:18 | Outpatient (CLI) | payer BC, SELFPAY ==
--- OUTSIDE RECORDS SUMMARY | 2024-09-29 08:34 | XMS_ITS | Encounter Summary ---
Author Organization [facility] Address [address] [place] [address] Care Team Providers Care Contract Admin Name Role Phone Kodak Krueger MD Primary Care Provider + Encounter Details Date Type Department Care Team (Late st Contact Info) Description 09/26/2024 External Device Data STL ABSTRACTION Provider, Abstract NO ADDRESS ON FILE Social History Tobacco Use Types Packs/Day Years Used Date Smoking Tobacco: Former Cigarettes Q uit: 02/24/2016 Smokeless Tobacco: Never Alcohol Use Standard Drinks/Week Comments Yes 0 (1 standard drink = 0.6 oz pur e alcohol) Sex and Gender Information Value Date Recorded Sex Assigned at Not on file Legal Sex Male 2:11 PM HEALTHCARE 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 ANALYST Gender Identity Not on file Sexual Orientation Not on file documented as of this encounter Plan of Treatment Upcoming Encounters Date Type Department Care Team (Late st Contact Info) Description 11/10/2024 9:15 AM CDT Office Visit [facility] and Hematology [place] [address] [place] [address] [place] [address] [place] [address] [address] [place] [address] documented as of this encounter Visit Diagnoses Not on filedocumented in this encounter Care Teams Contract Admin Relationship Specialty Start Date End Date Kodak Krueger MD [address] [place] [address] PCP - General Internal Medicine 05/26/16 documented as of this encounter
--- OUTSIDE RECORDS SUMMARY | 2024-09-29 08:35 | XMS_ITS | Encounter Summary ---
Author Organization [facility] Address [address] [place] [address] Care Team Providers Care Fat Purification Worker Name Role Phone Kodak Krueger MD Primary Care Provider [phone] Encounter Details Date Type Department Care Team (Late st Contact Info) Description 12/24/2018 Abstract [facility]FL CONVERSION [address] [place] [address] , Generic Conversion, Social History Tobacco Use Types Packs/Day Years Used Date Smoking Tobacco: Never Assessed Sex and Gender Information Value Date Recorded Sex Assigned at Not on file Legal Sex Male 5:54 PM WASH DRILLER HELPER Gender Identity Not on file Sexual Orientation Not on file documented as of this encounter Plan of Treatment Not on file documented as of this encounter Visit Diagnoses Not on filedocumented in this encounter Additional Health Concerns Infection Onset Date Last Indicated Resolved Time MRSA 08/03/2018 08/03/2018 documented as of this encounter Care Teams Fat Purification Worker Relationship Specialty Start Date End Date Kodak Krueger MD [address] [place] [address] PCP - General INTERNAL MEDICINE 10/27/18 documented as of this encounter
--- OUTSIDE RECORDS SUMMARY | 2024-09-29 08:35 | XMS_ITS | Clinical Summary ---
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 Cancer Staging:Clinical stage from 06/03/2016:Stage IV- Unsigned Generalized lymphadenopathy 05/26/2016 Benign hypertension 05/26/2016 Multiple sclerosis 05/26/2016 Encounters Date Type Department Care Team Description 09/26/2024 External Device Data STL ABSTRACTION Provider, Abstract 09/26/2024 External Device Data STL ABSTRACTION Provider, Abstract 09/23/2024 External Device Data STL ABSTRACTION Provider, Abstract 09/22/2024 External Device Data STL ABSTRACTION Provider, Abstract 09/19/2024 External Device Data STL ABSTRACTION Provider, Abstract 09/05/2024 External Device Data STL ABSTRACTION Provider, Abstract 08/22/2024 External Device Data STL ABSTRACTION Provider, Abstract 08/10/2024 External Device Data STL ABSTRACTION Provider, Abstract 08/09/2024 External Device Data STL ABSTRACTION Provider, Abstract 08/08/2024 External Device Data STL ABSTRACTION Provider, Abstract 08/01/2024 External Device Data STL ABSTRACTION Provider, Abstract 07/31/2024 Specialty Pharmacy [facility] [address] [place] [phone] Veronica Rodas, PHARMACIST 07/27/2024 Refill [facility] Oncology and Hematology [place] [address] [place] [address] Jitendra Fontenot MD Lymphoma, small lymphocytic (CMS/HCC) 07/14/2024 Specialty Pharmacy [facility] [address] [place] [phone] Veronica Rodas, PHARMACIST Specialty Pharmacy Refill Coordination 07/13/2024 Refill [facility] Oncology and Hematology - [place] [address] [place] [address] Jitendra Fontenot MD Lymphoma, small lymphocytic (CMS/HCC) from Last 3 Months Family History Medical [...] on file 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 Sex 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 Gender Identity Not on file Sexual Orientation Not on file Last Filed Vital Signs Vital Sign Reading Time Taken Comments Blood Pressure 118/67 05/12/2024 10:45 AM CDT Pulse 67 05/12/2024 10:45 AM CDT Temperature 36.6 C (97.8 F) 05/12/2024 10:45 AM CDT Respiratory Rate 18 05/12/2024 10:45 AM CDT [...] Description 11/10/2024 9:15 AM CDT Office Visit [facility] Oncology and Hematology - [place] [address] [facility] [address] [place] [address] Jitendra Fontenot MD [address] [facility] [address] [place] [address] Health Maintenance Due Date Last Done Comments Pre-Diabetes and Diabetes Screening 1969 DTAP/TDAP/TD VACCINES (1 - Tdap) 02/26/1988 HEPATITIS B VACCINES (1 of 3 - 19+ 3-dose series) 02/16 COLORECTAL SCREENING 2014 Colorectal Cancer Screening 2014 FIT-DNA Q 3 years 2014 FIT/FOBT Q 1 year 2014 Flex Sig/CT Colonography Q 5 years 2014 ZOSTER VACCINE (1 of 2) 2019 INFLUENZA VACCINE (#1) 2024 Preventative Visit- Commercial 07/19/2024 Insurance [facility] MEDICAID [place] [employer]UE [employer] [place] Express RX PRIME THERAPEUTICS Medicaid RX RELAYHEALTH Commercial Care Teams Supervisor Dairy Sanitation Relationship Specialty Start Date End Date Kodak Krueger MD [address] [place] [phone] PCP - General Internal Medicine 05/26/16
--- OUTSIDE RECORDS SUMMARY | 2024-09-29 08:35 | XMS_ITS | Clinical Summary ---
Author Organization [facility] Address [facility] [place] [address] Care Team Providers Care Talent Sourcing Specialist Name Role Phone Kodak Krueger MD Primary Care Provider [phone] Social History Tobacco Use Types Packs/Day Years Used Date Smoking Tobacco: Never Assessed Sex and Gender Information Value Date Recorded Sex Assigned at Not on file Legal Sex Male 5:54 PM BIZTALK ADMINISTRATOR Gender Identity Not on file Sexual Orientation [...] Last Indicated MRSA 08/03/2018 08/03/2018 Care Teams Talent Sourcing Specialist Relationship Specialty Start Date End Date Kodak Krueger MD [address] [place] [address] PCP - General INTERNAL MEDICINE 4/11/19
[2024-09-29 09:30] LABS: Anion Gap 7 mmol/L (4-12); Blood Urea Nitrogen 26 mg/dL (7-18); Carbon Dioxide 30 mmol/L (21-32); Chloride 108 mmol/L (98-108); Estimated Glomerular Filt Rate 59; Glucose 83 mg/dL (70-99); Osmolality Calculated 303 mOsm/kg (285-295); Potassium 4.4 mmol/L (3.5-5.1); Sodium 145 mmol/L (136-145); Uric Acid 4.9 mg/dL (3.5-7.2)
== END 2024-09-29 08:19 | disposition home or self-care (01) ==
LOC: CHSLAB 08:20
PROVIDERS: PCP Internal Medicine; Visit Provider Internal Medicine
DX: I10 Essential (primary) hypertension (principal); E79.0 Hyperuricemia without signs of inflammatory arthritis and tophaceous disease
CPT/HCPCS: 36415; 80048; 84550

== ENCOUNTER 2024-12-11 13:10 | Emergency (ER) | payer BC, SELFPAY ==
[2024-12-11 13:10] VITALS: BP 164/78; PULSE 69; RESP 16; TEMP 36.8; O2SAT 97
--- OUTSIDE RECORDS SUMMARY | 2024-12-11 13:12 | XMS_ITS | Clinical Summary ---
Author Organization [facility] Address [address] [place] [address] Care Team Providers Care Parachute Accessories Attacher Name Role Phone Kodak Krueger MD Primary [...] Encounters Date Type Department Care Team Description 12/07/2024 External Device Data STL ABSTRACTION Provider, Abstract 12/07/2024 External Device Data STL ABSTRACTION Provider, Abstract 12/06/2024 External Device Data STL ABSTRACTION Provider, Abstract 12/05/2024 External Device Data STL ABSTRACTION Provider, Abstract 10/04/2024 External Device Data STL ABSTRACTION Provider, Abstract 09/26/2024 External Device Data STL ABSTRACTION Provider, Abstract 09/26/2024 External Device Data STL ABSTRACTION Provider, Abstract 09/23/2024 External Device Data STL ABSTRACTION Provider, Abstract 09/22/2024 External Device Data STL ABSTRACTION Provider, Abstract 09/19/2024 External Device Data STL ABSTRACTION Provider, Abstract from Last 3 Months Family History Medical [...] on file Legal Sex Male 2:11 PM MEDIA CENTER SPECIALIST Gender Identity Not on file Sexual Orientation [...] Care Team (Late st Contact Info) Description 01/10/2025 11:45 AM CDT Office Visit [facility] On[facility] and H[facility]ology [place] [address] [facility] [address] [place] [address] Jitendra Fontenot MD [address] [facility] [address] [place] [address] Health Maintenance Due Date Last [...] of 2) 2019 INFLUENZA VACCINE (#1) 2024 [place] RX EXPRESS SCRIPTS Express RX PRIME THERAPEUTICS Medicaid RX RELAYHEALTH Commercial Care Teams Parachute Accessories Attacher Relationship Specialty Start Date End Date Kodak Krueger MD [address] [place] [address] PCP - General Internal Medicine 05/26/16
--- OUTSIDE RECORDS SUMMARY | 2024-12-11 13:12 | XMS_ITS | Encounter Summary ---
Author Organization [facility] Address 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 Gender Identity Not on file Sexual Orientation Not on file documented as of this encounter Plan of Treatment Upcoming Encounters Date Type Department Care Team (Late st Contact Info) Description 01/10/2025 11:45 AM CDT Office Visit [facility] Oncology and Hematology [place] [address] [place] [address] [address] [place] [address] [place] [address] [place] [address] [address] [place] [address] documented as of this encounter Visit Diagnoses Not on filedocumented in this encounter Care Teams Manager Garden Relationship Specialty Start Date End Date Kodak Krueger MD [address] [place] [phone] PCP - General Internal Medicine 05/26/16 documented as of this encounter
--- OUTSIDE RECORDS SUMMARY | 2024-12-11 13:12 | XMS_ITS | Data Portability ---
Author Organization ID - [facility] OFFICE Address [address] [place] [address] Care Team Providers Care Rent Control Office Manager Name Role Phone CASH HIGHTOWER Primary Care Provider Assessment No assessment recorded. Plan of Treatment [...] By Organization Details Last Modified Time 04/01/2020 [id number] Exercise advised Low cholesterol diet advised Low sodium diet advised [email or web address] Not available 04/03/2020 17:31:12 Scribed by Oswald Quinn [facility] [email or web address] Not available 04/03/2020 17:31:06 04/22/2020 [id number] Exercise advised Low cholesterol diet advised Low sodium diet advised Not available 04/22/2020 15:10:25 Patient was seen and evaluated by Kristyn Quinn [facility]. Plan of care was discussed with collaborating physician and note cosigned by Dr. Greg Singh. [email or web address] Not available 04/22/2020 15:10:58 Reason for Referral None Reported. Results Created Date Observation Date Name Description Value Unit Range Abnormal Flag Note LastModifiedBy Organization Detail LastModifiedTime 04/02/20 20 03/21/2020 US, jose d x, liudmila s, lower extre mity No observ ation record ed. [email or web address] Not Available 2019 16:11:22 05/08/20 20 04/12/2020 US, maryle x, venou s, lower extre mity No observ ation record ed. [email or web address] Not Available 2019 11:44:26 Result Notes None recorded. Problems Name Problem SNOMED Code Status Onset Date Resolution Date Notes Provider Name and Address Organization Details Recorded Time Superficial thrombophlebit is 4624945 Active 2020 [place] null, [place] - [facility] 1 14:08:05 Essential hypertension 51092628 Active 2020 [place] [facility] 1 14:08:13 Gout 35526451 Active 2019 Steph [place] [facility] 0 11:39:12 Multiple sclerosis 28340312 Active 2019 Steph [place] [facility] 0 11:39:23 Lymphoma finding 712968430 Active 2019 Steph [place], [place] - [facility] 0 11:39:45 Problem Notes None recorded. Medical Equipment None Reported. Allergies Allergen ID Allergen Name Allergen Category Reaction Reaction Severity Criticality Documentation Date Start Date Code Code System Note Provider Name and Address Organization Details Recorded Time 31058 Product containin g penicilli n (product) medicatio n Not available Not available Not available 03/28/2020 59928 8001 SNOMED Steph [place] null, [place] - [facility] 0 [...] Body mass index (BMI) Body weight Systolic And Diastolic Provider Name and Address Organization Details Last Updated DateTime 0 73 /min 98 % 98 % 182.88 cm 27 kg/m2 63026.3 2 g 140/82 mm[Hg] [facility] [place] 0 15:55:05 Date Recorded Body height Body temperature Body mass index (BMI) Body weight Provider Name and Address Organization Details Last Updated DateTime 04/22/2020 182.88 cm 96.7 [degF] 26.8 kg/m2 [address] [facility] [place] 04/22/2020 14:52:22 Date Recorded Heart rate Oxygen saturation Oxygen saturation in Arterial blood by Pulse oximetry Systolic And Diastolic Provider Name and Address Organization Details Last Updated DateTime 04/22/2020 78 /min 98 % 98 % 120/70 mm[Hg] Kristyn Quinn [facility] [place] 0 14:55:24 Social History Question Answer Notes LastModified by Organizat ion Details LastModified Time Tobacco Smoking Status Former Smoker Steph [facility] [place] 04/01/2020 15:51:53 What Is Your Level Of Caffeine Consumption? Occasional Information not available 04/01/2020 How Much Tobacco Do You Chew? None [email or web address] Information not available 04/01/2020 What Type Of Diet Are You Following? REGULAR [email or web address] Information not available 04/01/2020 Which Illicit Or Recreational Drugs Have You Used? None [email or web address] Information not available 04/01/2020 Live Alone Or With Others? With Others [email or web address] Information not available 04/01/2020 Marital Status [email or web address] Informatio n not available 04/01/2020 What Was The Date Of Your Most Recent Tobacco Screening? 04/22/2020 [email or web address] Information not available 11/16/2020 How Many Children Do You Have? 2 [email or web address] Information not available 04/01/2020 General Stress Level Medium [email or web address] Information not available 04/01/2020 Sex: Unknown Functional Status Question Answer Note LastModified by Organizat ion Details LastModified Time What is your level of alcohol consumption? Occasional [email or web address] Information not available 04/01/2020 Do you or have you ever used smokeless tobacco? Never used smokeless tobacco [email or web address] Information not available 04/01/2020 Do you or have you ever used e-cigarettes or vape? Never used electronic cigarettes [email or web address] Information not available 04/01/2020 What is your exercise level? Occasional [email or web address] Information not available 04/01/2020 Mental Status None recorded. Family History Nothing Reported. Medical History Condition Response Hypertension Y Past Encounters Encounter ID Performer Location Encounter Start Date Encounter Closed Date Diagnosis/Indication Diagnosis SNOMED-CT Code Diagnosis ICD10 Code Diagnosis Note [id number] Greg Singh MD [place] Office [facility] [place] [address] 04/01/2020 15:28:28 04/04/2020 13:03:49 Follow-up visit 846871409 Z09 Superficia l thrombophlebitis 1521404 I80.9 I80.3 Improved with ibuprofen and antibiotic sVenous doppler 03/21/2020 showed no DVTContinu e ibuprofen, will repeat venous doppler. Essential hypertension 80782885 I10 Controlled [id number] Greg Singh MD [place] [facility] [place] [address] 04/22/2020 14:27:25 04/22/2020 15:32:10 Superficial thrombophlebitis 2524198 I80.9 I80.3 ResolvedVe nous doppler 03/21/2020 showed no DVTRepeat venous doppler 04/17/[address] Singh Continue ibuprofen PRN Essential hypertension 46355509 I10 Well controlled with current regimen Health Concerns Section Related Observation LastModified by Organization Detai ls LastModified Time None Recorded Concern Status LastModified by Organization Details LastModified Time None Recorded Advance Directives Directive None Recorded Payers Insurance Date Sequence Insurance Name Policy Number Policy Lanier Covered Member ID Lanier Member ID Guarantor Name 12/09/2020 1 [employer] (PP[employer]) [id number] Taras Kerr [id number] Taras Kerr 04/12/2020 1 *SELF PAY* Asif Notes Date Note Type Note Provider Name and Address Organization Details Recorded Time 04/01/2020 text/html 04/01/2020 CC: right leg pain 50-year-old male with PMH of gout and HTN presents for cardiac consultation for right leg pain. He was in [facility] 03/21/2020 with right leg/groin pain. DVT [...] WBC 35.2, HGB 15.1, HCT 45.2, PLT [id number] PT/INR: PT 13.8, INR 1.109 BMP: NA 133, K 4.1, CL 101, CO2 24, GLU 118, BUN 16, CR 1.30 Jennifer Navarrete [facility] [place] 04/15/2020 10:40:04 04/22/2020 text/html 04/01/2020 CC: right leg pain 50-year-old male with PMH of gout and HTN presents for cardiac consultation for right leg pain. He was in [facility] 03/21/2020 with right leg/groin pain. 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 No chest pain. No shortness of breath [...] WBC 35.2, HGB 15.1, HCT 45.2, PLT 78684 PT/INR: PT 13.8, INR 1.109 BMP: NA 133, K 4.1, CL 101, CO2 24, GLU 118, BUN 16, CR 1.30 Kristyn Quinn [facility] [place] 04/22/2020 15:32:08
--- NOTE | 2024-12-11 13:17 | ED.EYEPROB ---
HPI - Eye Problem General Chief complaint: Eye Problems Stated complaint: left eye irritation Time Seen by Provider: 12/11/24 13:12 Source: patient Mode of arrival: ambulatory Limitations: no limitations History of Present Illness HPI Narrative: patient is a 54-year-old male with a significant past medical history that presents today for a foreign object in his left eye. Patient states that he was taking a nap in his chair and close eyes it took a nap and when he woke up following some weight lives in his left eye. He denies going outside or working outside her doing anything that would make the probability of something getting inside low. But he says that he feels like something is inside. After opening his eye fully and having look all directions I could see a white piece of flows and the thought of as I was able to get it now without having to use lower stain or numb the eye and get rid her there and is no longer in his eye he says he feels 100% better and we need to go no further. chief complaint: foreign body Onset (ago): hour(s) Onset description: sudden Duration: constant Location: left eye Eye Symptoms: foreign body sensation Place: home Mechanism: none Severity: mild Severity scale (1-10): 2 If Pain, Quality: sharp and burning Associated symptoms: none Treatments Prior to Arrival: irrigated eye and OTC eye drops Related Data Patient tetanus UTD: Yes Home Medications ?Medication ?Instructions ?Recorded ?Confirmed ?Last Taken ?Type allopurinol 300 mg tablet 300 mg PO HS 01/13/20 09/20/23 08/30/23 History ibrutinib 420 mg tablet (Imbruvica) 420 mg PO HS 01/13/20 09/20/23 08/30/23 History lisinopril 10 1 tablet PO DAILY 01/13/20 09/20/23 08/30/23 History mg-hydrochlorothiazide 12.5 mg tablet Allergies Allergy/AdvReac Type Severity Reaction Status Date / Time Penicillins Allergy Severe Anaphylaxis Verified 12/11/24 13:15 Review of Systems Review of Systems: All systems reviewed & are unremarkable except as noted in HPI and below Constitutional: Constitutional: Reports as per HPI Eyes: Eyes: Reports as per HPI Comments: Foreign body sensation in left eye, after moving around and reaching into his eye I was able to get the foreign body out without any assistance and it was a small a piece of whhite fuzz, ENT: Reports system reviewed and no additional complaints, except as documented Cardiovascular: Cardiovascular: Reports no additional cardiovascular complaints Respiratory: Respiratory: Reports no additional respiratory complaints Gastrointestinal: Gastrointestinal: Reports no additional gastrointestinal complaints Genitourinary: Genitourinary: Reports no additional male genitourinary complaints Musculoskeletal: Musculoskeletal: Reports no additional musculoskeletal complaints Integumentary/Breasts: Skin/Breast: Reports system reviewed and no additional complaints, except as docu Neurologic: Reports system reviewed and no additional complaints, except as documented Psychiatric: Psychiatric: Reports no additional psychiatric complaints Endocrine: Endocrine: Reports no additional endocrine complaints Hematologic/Lymphatic: Hematologic/Lymphatic: Reports no additional hematologic/lymphatic complaints Allergic/Immunologic: Allergic/Immunologic: Reports no additional allergic/immunologic complaints PMFSH Past Medical History Medical History Gout Lymphoma Hypertension Surgical History Surgical History H/O left inguinal hernia repair 08/31/23 Laparoscopic left inguinal hernia repair with mesh, da Jonathan assisted Dr. Lino History of removal of Port-a-Cath Port placement done by Dr. Palumbo in 2016. Port removed by Dr. Wayne in 2018. Social History Social History Smoking packs per day: 1 Smoking cigarettes per day: 20.0 Years smoked: 31 Smoking pack-years: 31.00 Smoking status: Current some day smoker Tobacco type: cigarettes Smoking end date: 05/19/15 Additional smoking assessment comments: QUIT 1 PPD 2014, NOW 1 CIGARETTE EVERY FEW DAYS Alcohol intake: never Substance use: never Substance use type: does not use Living arrangements: with family Gender identity (if verbalized by the patient): Male Sexual Orientation (if Verbalized by the Patient): Straight or Heterosexual Spiritual care concerns: No Exam Const: General: healthy appearing Nutritional Appearance: well nourished Orientation/consciousness: patient oriented x3 HENMT: Head: normal to inspection Ears: external ears normal Face/Nose/Sinus: Normal external nose present Face and sinus: normal facial exam Mouth: Yes Normal oral and palatal mucosa present Teeth and gingiva: dentition normal Throat: posterior oropharynx normal Eyes: Conjunctivae: conjunctivae normal Pupils: Equal, round and reactive pupils present EOM: EOMs intact bilaterally Other: Foreign body sensation in left eye, after moving around and reaching into his eye I was able to get the foreign body out without any assistance and it was a small a piece of whhite fuzz, Neck: Neck: normal visual inspection Chest: Chest palpation & inspection: normal inspection of the chest Resp: Effort & Inspection: normal respiratory effort Auscultation: clear to auscultation bilaterally Cardio: Rate: regular rate Rhythm: regular rhythm GI: GI Palp: Yes Soft to palpation Back/Spine/Pelvis: Back: no CVA tenderness Skin: General skin exam: normal color Rashes: no rashes Wounds: no wounds Neuro: General: patient oriented x3 Cranial nerves: Yes Nystagmus not present Speech: normal speech Gait exam (Neuro): Normal gait present Extrem: General: normal to inspection Psych: Mental Status: mental status grossly normal Affect: normal affect Attitude: cooperative Course Vital Signs Vital signs: Vital Signs Temperature 98.3 F 12/11/24 13:10 Pulse Rate 69 12/11/24 13:10 Respiratory Rate 16 12/11/24 13:10 Blood Pressure 164/78 H 12/11/24 13:10 Pulse Oximetry 97 12/11/24 13:10 Temperature 98.3 F 12/11/24 13:10 Pulse Rate 69 12/11/24 13:10 Respiratory Rate 16 12/11/24 13:10 Blood Pressure 164/78 H 12/11/24 13:10 Pulse Oximetry 97 12/11/24 13:10 MDM - Eye Problem MDM Narrative Medical decision making narrative: Foreign body sensation in left eye, after moving around and reaching into his eye I was able to get the foreign body out without any assistance and it was a small a piece of whhite fuzz. After retrieving the 4 by he says he feels perfectly fine now feels and though foreign body at all no scratch sensation no sensation all in his eye feels perfect. Will not need to send him home with any drops or hitting of the sore I just let him know if he as if starts bothering him again get teardrops and please indicate been nice and moist. Differential Diagnosis Differential diagnosis: Likely corneal abrasion, conjunctivitis and other ( foreign object i eye) Medical Records Attestation: I reviewed the patient's medical records. Lab Data Attestation: I reviewed the patient's lab results. Discharge Plan Discharge Clinical Impression: Eye abnormality, Eye abrasion Patient Disposition: Home Condition: Stable Instructions: Eye Foreign Body (ED) Patient Language: Gibraltarian Prescriptions: No Action allopurinol 300 mg tablet 300 mg PO HS lisinopril-hydrochlorothiazide 10-12.5 mg tablet 1 tablet PO DAILY Imbruvica 420 mg tablet 420 mg PO HS Follow-up/Referrals: Kodak Krueger MD [Primary Care Provider] - Time of Disposition: 13:32
[2024-12-11 13:37] VITALS: BP 164/78; PULSE 69; RESP 16; TEMP 36.8; O2SAT 97
== END 2024-12-11 13:37 | disposition home or self-care (01) ==
PROVIDERS: Emergency Provider Family Medicine; PCP Internal Medicine
DX: S05.02XA Injury of conjunctiva and corneal abrasion without foreign body, left eye, initial encounter (principal); I10 Essential (primary) hypertension; F17.210 Nicotine dependence, cigarettes, uncomplicated; X58.XXXA Exposure to other specified factors, initial encounter
CPT/HCPCS: 99282

== ENCOUNTER 2025-02-20 23:26 | Emergency (ER) | payer BC, SELFPAY ==
[2025-02-20 23:26] VITALS: BP 192/95; PULSE 89; RESP 20; TEMP 36.6; O2SAT 95
--- OUTSIDE RECORDS SUMMARY | 2025-02-20 23:28 | XMS_ITS | Clinical Summary ---
Author Organization [facility] Address [address] [place] [address] Care Team Providers Care Visual Coordinator Name Role Phone Kodak Krueger MD Primary [...] Encounters Date Type Department Care Team Description 01/31/2025 External Device Data [facility] ABSTRACTION Provider, Abstract 01/31/2025 External Device Data [facility] ABSTRACTION Provider, Abstract 01/31/2025 External Device Data [facility] ABSTRACTION Provider, Abstract 01/30/2025 External Device Data [facility] ABSTRACTION Provider, Abstract 01/16/2025 External Device Data [facility] ABSTRACTION Provider, Abstract 01/09/2025 External Device Data [facility] ABSTRACTION Provider, Abstract 01/02/2025 External Device Data [facility] ABSTRACTION Provider, Abstract 12/12/2024 External Device Data ST[facility] ABSTRACTION Provider, Abstract [...] on file Legal Sex Male 2:11 PM DICE TABLE PERSON Gender Identity Not on file Sexual Orientation [...] Care Team (Late st Contact Info) Description 03/08/2025 3:45 PM CDT Office Visit [facility] Oncology and Hematology - Duc [address] [facility] [[email or web address] [address] [place] [address] Jitendra Fontenot MD [address] [place] [address] Health Maintenance Due Date Last [...] (1 of 2) 2019 INFLUENZA VACCINE (#1) 2025 Insurance [employer] [place] RX EXPRESS SCRIPTS Express RX PRIME THERAPEUTICS Medicaid RX [employer]AY[employer] Commercial Care Teams Visual Coordinator Relationship Specialty Start Date End Date Kodak Krueger MD [address] [place] [address] PCP - General Internal Medicine 05/26/16
[2025-02-21] MEDS: KETOROLAC (*BKC) 60 MG/2 ML VIAL IM (00:32)
[2025-02-21] MEDS: dexAMETHasone SOD PHOS INJ 10 MG/ML 1 ML VIAL IM (00:32)
--- NOTE | 2025-02-21 00:50 | ED.BACK ---
HPI - Back Pain/Injury General Chief Complaint: Back Pain/Injury Stated Complaint: LEFT SIDE BACK PAIN Time Seen by Provider: 02/21/25 00:06 Source: patient Mode of arrival: ambulatory Limitations: no limitations History of Present Illness HPI Narrative: 54 YEARS OLD WHITE MALE DROVE HIMSELF TO THE EMERGENCY ROOM COMPLAINING OF LEFT LOWER BACK PAIN RADIATING TO LEFT LOWER EXTREMITY PAIN STARTED OVER THE LAST FEW DAYS. PATIENT REPORT HISTORY OF BULGING DISC L3 L4-L5, GET WORSE ONCE A YEAR. BECOME MORE FREQUENT LATELY. 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 DENIES BOWEL DYSFUNCTION, BLADDER DYSFUNCTION, ALTERED SENSATION, FOCAL WEAKNESS, OR SADDLE NUMBNESS,. PATIENT WAS SEEN BY HIS FAMILY PHYSICIAN 1 WEEK AGO, GOT SLIGHTLY BETTER ON MEDROL DOSEPAK THEN PAIN IS BACK AGAIN. PATIENT REPORT HISTORY OF COMPLETE IMPROVEMENT AFTER GOING TO A CHIROPRACTOR Related Data Home Medications ?Medication ?Instructions ?Recorded ?Confirmed ?Last Taken ?Type allopurinol 300 mg tablet 300 mg PO HS 01/13/20 09/20/23 08/30/23 History ibrutinib 420 mg tablet (Imbruvica) 420 mg PO HS 01/13/20 09/20/23 08/30/23 History lisinopril 10 1 tablet PO DAILY 01/13/20 09/20/23 08/30/23 History mg-hydrochlorothiazide 12.5 mg tablet Allergies Allergy/AdvReac Type Severity Reaction Status Date / Time Penicillins Allergy Severe Anaphylaxis Verified 02/20/25 23:36 Review of Systems Review of Systems: All systems reviewed & are unremarkable except as noted in HPI and below PMFSH Past Medical History Medical History Gout Lymphoma Hypertension Surgical History Surgical History H/O left inguinal hernia repair 08/31/23 Laparoscopic left inguinal hernia repair with mesh, da Jonathan assisted Dr. Lino History of removal of Port-a-Cath Port placement done by Dr. Palumbo in 2016. Port removed by Dr. Wayne in 2018. Social History Social History Smoking packs per day: 1 Smoking cigarettes per day: 20.0 Years smoked: 31 Smoking pack-years: 31.00 Smoking status: Current some day smoker Tobacco type: cigarettes Smoking end date: 05/19/15 Additional smoking assessment comments: QUIT 1 PPD 2014, NOW 1 CIGARETTE EVERY FEW DAYS Alcohol intake: never Substance use: never Substance use type: does not use Living arrangements: with family Gender identity (if verbalized by the patient): Male Sexual Orientation (if Verbalized by the Patient): Straight or Heterosexual Spiritual care concerns: No Exam Narrative: GENERAL APPEARANCE: WELL-DEVELOPED, WELL-NOURISHED SKIN: NORMAL COLOR HEAD: NORMOCEPHALIC, NONTRAUMATIC EYES: CLEAR CONJUNCTIVA ENT: OROPHARYNX NORMAL, EARS NORMAL, NOSE NORMAL NECK: SUPPLE, NONTENDER CHEST AND RESPIRATORY: AIRWAY PATENT, NO RESPIRATORY DISTRESS, NO ACCESSORY MUSCLE USE HEART: REGULAR RATE/RHYTHM ABDOMEN: SOFT, NONTENDER, NO ORGANOMEGALY, QUIET BOWEL SOUNDS VASCULAR: NORMAL PERIPHERAL PULSES, NORMAL CAPILLARY REFILL. MUSCULOSKELETAL: NORMAL RANGE OF MOTION, SLIGHT TENDERNESS LEFT LOWER BACK, NO BRUISES, NO SWELLING OR RASH NEUROLOGIC: ALERT AND ORIENTED ?3, CIGARETTE LIGHTER REPAIRER IS NORMAL TESTED, NO GROSS MOTOR DEFICIT Course Vital Signs Vital signs: Vital Signs Temperature 36.6 C 02/20/25 23:26 Pulse Rate 89 02/20/25 23:26 Respiratory Rate 20 02/20/25 23:26 Blood Pressure 192/95 H 02/20/25 23:26 Pulse Oximetry 95 02/20/25 23:26 Oxygen Delivery Room Air 02/20/25 23:26 Temperature 36.6 C 02/20/25 23:26 Pulse Rate 89 02/20/25 23:26 Respiratory Rate 20 02/20/25 23:26 Blood Pressure 192/95 H 02/20/25 23:26 Pulse Oximetry 95 02/20/25 23:26 Oxygen Delivery Room Air 02/20/25 23:26 MDM - Back Pain/Injury MDM Narrative Medical decision making narrative: DIFFERENTIAL DIAGNOSIS LOWER BACK PAIN, LUMBAR RADICULOPATHY Differential Diagnosis Differential diagnosis: Likely lumbar radiculopathy, sciatica and strain of lumbar region Critical Care Time Critical Care Time Critical Care Time: No Discharge Plan Discharge Clinical Impression: Lumbar radiculopathy Patient Disposition: Home Condition: Improved Instructions: Lumbar Radiculopathy (ED) Additional Instructions: RETURN IF SYMPTOMS ARE WORSENING , CALL YOUR FAMILY PHYSICIAN FOR APPOINTMENT, TAKE TYLENOL NEEDED FOR ACHES AND PAIN, CONTINUE HOME MEDICATIONS. Patient Language: Indian Prescriptions: New dexamethasone 4 mg tablet 4 mg PO Q8H Qty: 15 0RF No Action allopurinol 300 mg tablet 300 mg PO HS lisinopril-hydrochlorothiazide 10-12.5 mg tablet 1 tablet PO DAILY Imbruvica 420 mg tablet 420 mg PO HS Follow-up/Referrals: Kodak Krueger MD [Primary Care Provider] -
[2025-02-21 01:10] VITALS: BP 168/78; PULSE 82; RESP 18; O2SAT 94
--- OUTSIDE RECORDS SUMMARY | 2025-02-21 01:22 | XMS_ITS | Encounter Summary ---
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
--- OUTSIDE RECORDS SUMMARY | 2025-02-21 01:22 | XMS_ITS | Clinical Summary ---
Author Organization [facility] Address [address] [place] [address] Care Team Providers Care Nursing Specialist Name Role Phone Kodak Krueger MD [...] on file Legal Sex Male 2:11 PM ENDODONTICS DENTIST Gender Identity Not on file Sexual Orientation [...] Description 03/08/2025 3:45 PM CDT Office Visit [facility] Oncology and Hematology - [facility] [address] [facility] [address] [place] [address] Jitendra Fontenot MD [address] [address] [place] [address] Health Maintenance Due Date Last [...] 2) 2019 INFLUENZA VACCINE (#1) 2025 Insurance [employer] [place] RX EXPRESS SCRIPTS Express RX PRIME THERAPEUT[employer] Medicaid RX [employer]AY[employer] Commercial Care Teams Nursing Specialist Relationship Specialty Start Date End Date Kodak Krueger MD [address] [place] [address] PCP - General Internal Medicine 05/26/16
--- OUTSIDE RECORDS SUMMARY | 2025-02-21 01:22 | XMS_ITS | Clinical Summary ---
Author Organization [facility] Address [facility] [place] [address] Care Team Providers Care Hyperbaric Welder Diver Name Role Phone Kodak Krueger MD Primary Care Provider [phone] Social History Tobacco Use Types Packs/Day Years Used Date Smoking Tobacco: Never Assessed Sex and Gender Information Value Date Recorded Sex Assigned at Not on file Legal Sex Male 5:54 PM BUSINESS SERVICES COORDINATOR Gender Identity Not on file Sexual Orientation Not on file Plan of Treatment Health Maintenance Due Date Last Done Comments Colorectal Cancer Screening Colonoscopy (10 Years) 1969 Annual Physical 02/26/1972 Hepatitis C 1987 DTaP, Tdap and Td Vaccines ( 1 - Tdap) 02/26/1988 Hepatitis B Vaccines (1 of 3 - 19+ 3-dose series) 02/26/1988 Pneumococcal Vaccine: 50+ Ye ars (1 of 1 - PCV) 2019 Zoster Vaccines (1 of 2) 2019 COVID-19 Vaccine (1 - 2023-2 5 season) 2024 Meningococcal B Vaccine Aged Out No [...] Last Indicated MRSA 08/03/2018 08/03/2018 Care Teams Hyperbaric Welder Diver Relationship Specialty Start Date End Date Kodak Krueger MD [address] [place] [address] PCP - General INTERNAL MEDICINE 10/27/18
== END 2025-02-21 01:10 | disposition home or self-care (01) ==
LOC: CHSED 02-21 01:20
PROVIDERS: Emergency Provider Emergency Medicine; PCP Internal Medicine
DX: M54.16 Radiculopathy, lumbar region (principal); I10 Essential (primary) hypertension; F17.210 Nicotine dependence, cigarettes, uncomplicated
CPT/HCPCS: 96372; 99284; J1100; J1885

== ENCOUNTER 2025-03-08 15:24 | Outpatient (CLI) | payer BC, SELFPAY ==
--- OUTSIDE RECORDS SUMMARY | 2025-03-08 15:27 | XMS_ITS | Clinical Summary ---
Author Organization [facility] Address [facility] [place] [address] Care Team Providers Care Microsoft Application Developer Name Role Phone Kodak Krueger MD Primary Care Provider [phone] Social History Tobacco Use Types Packs/Day Years Used Date Smoking Tobacco: Never Assessed Sex and Gender Information Value Date Recorded Sex Assigned at Not on file Legal Sex Male 5:54 PM REHAB/PRE VOCATIONAL COUNSELOR Gender Identity Not on file Sexual Orientation [...] Last Indicated MRSA 08/03/2018 08/03/2018 Care Teams Microsoft Application Developer Relationship Specialty Start Date End Date Kodak Krueger MD [address] [place] [phone] PCP - General INTERNAL MEDICINE 10/27/18
--- OUTSIDE RECORDS SUMMARY | 2025-03-08 15:27 | XMS_ITS | Encounter Summary ---
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
--- OUTSIDE RECORDS SUMMARY | 2025-03-08 15:27 | XMS_ITS | Clinical Summary ---
Author Organization [facility] Address [address] [place] [address] Care Team Providers Care Senior Research Consultant Name Role Phone Kodak Krueger MD Primary Care Provider + Allergies Active Allergy Reactions Criticality Noted Date Comments Penicillins Shortness of Breath/Wheezing High 2015 Medications lisinopril-hydr oCHLOROthiazide (ZESTORETIC) 10-12.5 mg tablet 01/27/20 19 Active acetaminophen (TYLENOL) 500 mg tablet Take 500 mg by mouth every 6 hours as needed. 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 Cancer Staging:Clinical stage from 06/03/2016:Stage IV- Unsigned Generalized lymphadenopathy 05/26/2016 Benign hypertension 05/26/2016 Multiple sclerosis 05/26/2016 Encounters Date Type Department Care Team Description 03/06/2025 External Device Data ST[facility] ABSTRACTION Provider, Abstract 02/23/2025 Refill [facility] Oncology and Hematology - Duc [address] [place] [address] Petra Cortez MD Lymphoma, small lymphocytic (CMS/HCC) 01/31/2025 External Device Data ST[facility] ABSTRACTION Provider, [...] on file Legal Sex Male 2:11 PM NUCLEAR EQUIPMENT RESEARCH 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 Gender Identity Not on file Sexual Orientation [...] Description 03/08/2025 3:45 PM CDT Office Visit [facility] Oncology and Hematology - Duc [address] [place] [address] Jitendra Fontenot MD [address] [facility] [address] [place] [address] Health Maintenance Due Date Last Done Comments Pre-Diabetes and Diabetes Screening 1969 DTAP/TDAP/TD VACCINES (1 - Tdap) 02/26/1988 HEPATITIS B VACCINES (1 of 3 - 19+ 3-dose series) 02/16 COLORECTAL SCREENING 2014 Colorectal Cancer Screening 2014 FIT-DNA Q 3 years 2014 FIT/FOBT Q 1 year 2014 Flex Sig/CT Colonography Q 5 years 2014 ZOSTER VACCINE (1 of 2) 2019 Preventative Visit- Commercial 07/19/2024 INFLUENZA VACCINE (#1) 2025 Insurance [employer] MEDICAID [place] [employer] MEDICAID [place] RX EXPRESS SCRIPTS Express RX PRIME THERAPEUTICS Medicaid RX [employer]AY[employer] Commercial Care Teams Senior Research Consultant Relationship Specialty Start Date End Date Kodak Krueger MD [address] [place] [address] PCP - General Internal Medicine 05/26/16
[2025-03-08 15:39] LABS: Hematocrit 44.1 % (42.0-52.0); Hemoglobin 14.8 g/dL (14.0-18.0); Immature Granulocyte Percent A 0.2 % (0-0.5); Immature Platelet Fraction Pct 5.1 % (0.9-11.2); Lymphocytes Absolute Auto 0.84 K/mm3 (0.9-3.2); Mean Corpuscular HGB Conc 33.6 g/dl (32-36); Mean Corpuscular Hemoglobin 30.8 pg (26-34); Mean Corpuscular Volume 91.7 fl (80-100); Nucleated Red Blood Cells Absolute Auto 0.000 K/mm3 (0.0-0.012); Nucleated Red Blood Cells Perc 0.0 % (0.0-0.2); Platelet Count Result 100 k/mm3 (150-375); Red Blood Count 4.81 M/mm3 (4.6-6.20); White Blood Count 5.3 K/mm3 (4.5-10.0)
[2025-03-08 15:40] LABS: Blood Urea Nitrogen 17 mg/dL (8-26); Carbon Dioxide 24 mmol/L (22-30); Chloride 99 mmol/L (98-109); Estimated Glomerular Filt Rate 52; Glucose 104 mg/dL (70-105); Ionized Calcium (POC) 1.13 mmol/L (1.11-1.31); Potassium 3.6 mmol/L (3.5-4.9); Sodium 136 mmol/L (138-146)
== END 2025-03-08 15:25 | disposition home or self-care (01) ==
LOC: ANHLAB 15:25
PROVIDERS: PCP Internal Medicine; Visit Provider Internal Medicine Hematology & Oncology
DX: C83.00 Small cell B-cell lymphoma, unspecified site (principal)
CPT/HCPCS: 36415; 80047; 85025; 85055

== ENCOUNTER 2025-03-23 10:03 | Outpatient (CLI) | payer BC, SELFPAY ==
--- NOTE | ~2025-03-23 | CT_ITS ---
EXAMINATION: CT chest abdomen pelvis w con DATE: 03/23/2025 10:38 INDICATION: Small lymphocytic lymphoma TECHNIQUE: Computed tomography (CT) of the chest, abdomen, and pelvis was performed with 100 mL Omnipaque-350 intravenous contrast. Automated exposure control and iterative reconstruction technique were employed. The dose-length product was 751.98 mGy-cm. COMPARISON: CT studies dated 08/06/2023 and 02/06/2019 FINDINGS: CHEST CT: Mild emphysema. Unchanged mild discoid atelectasis/scarring at the lingula. Unchanged 2 mm nodule along the medial aspect of the right minor fissure. No new or enlarging pulmonary nodules, pneumonia, pulmonary edema or pleural effusion. Heart size is normal. Atherosclerotic coronary artery calcification. No pericardial effusion. No pathologically enlarged thoracic lymphadenopathy. There is however a focal nodular region of thickening of the otherwise relatively thin cortex at a right axillary lymph node with the region of thickening measuring approximately 9-10 mm in diameter with remainder the cortex measuring approximately 3 mm in maximal thickness. Mild thoracic spondylosis. ABDOMEN/PELVIS CT: No significant change since 2019 in a 2.3 cm hemangioma in the right hepatic lobe with peripheral discontiguous puddling of contrast. Gallbladder, spleen, pancreas and bilateral adrenal glands are normal. Bilateral low-attenuation renal cysts measuring up to 1.0 cm the left kidney. 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 Bowels including the appendix are normal. Bladder is normal. Small bilateral hydroceles. Mild prostatomegaly measuring 4.3 x 3.4 cm. No free intraperitoneal gas or fluid. No pathologically enlarged abdominal or pelvic lymphadenopathy. Very small fat-containing right inguinal hernia. Status post interval mild degenerative skeletal changes in the spine and pelvis. Left inguinal hernia repair. IMPRESSION: 1. No pathologically enlarged lymphadenopathy in the chest, abdomen or pelvis. There is however a focal region of nodular cortical thickening of a single right axillary lymph node which does raise some concern for recurrent lymphoma. Reviewed, dictated and finalized at location A. IMPRESSION: 1. No pathologically enlarged lymphadenopathy in the chest, abdomen or pelvis. There is however a focal region of nodular cortical thickening of a single righ t axillary lymph node which does raise some concern for recurrent lymphoma.
--- OUTSIDE RECORDS SUMMARY | 2025-03-23 10:29 | XMS_ITS | Clinical Summary ---
Author Organization [facility] Address [address] [facility] [place] [address] Care Team Providers Care Gymnastic Teacher Name Role Phone Kodak Krueger MD Primary [...] Encounters Date Type Department Care Team Description 03/09/2025 Orders Only [facility] [address] [place] [address] Jitendra Fontenot MD 03/08/2025 3:45 PM CDT Office Visit [facility] [address] [place] [phone] Jitendra Fontenot MD Lymphoma, small lymphocytic (CMS/HCC) (Primary Dx) 03/06/2025 External Device Data [facility] ABSTRACTION Provider, Abstract 02/23/2025 Refill [facility] [address] [place] [phone] Petra Cortez MD Lymphoma, small lymphocytic (CMS/HCC) [...] on file Legal Sex Male 2:11 PM EMERGENCY MEDICAL SERVICES COORDINATOR Gender Identity Not on file Sexual Orientation Not on file Last Filed Vital Signs Vital Sign Reading Time Taken Comments Blood Pressure 130/69 03/08/2025 3:38 PM CDT Pulse 96 03/08/2025 3:38 PM CDT Temperature 36.7 C (98 F) 03/08/2025 3:38 PM CDT Respiratory Rate 15 03/08/2025 3:38 PM CDT Oxygen Saturation 96% 03/08/2025 3:38 PM CDT Inhaled Oxygen Concentration - - Weight 95.5 kg (210 lb 9.6 oz) 03/08/2025 3:38 P M CDT Height 182.9 cm (6') 11/07/2021 9:40 AM CDT Body Mass Index 28.56 11/07/2021 9:40 AM CDT Plan of Treatment Upcoming Encounters Date Type Department Care Team (Late st Contact Info) Description 04/02/2025 4:30 PM CDT Telephone Check Up [facility] [address] [place] [phone] Jitendra Fontenot MD [address] [facility] [employer] [address] [place] [phone] 09/07/2025 10:00 AM EMERGENCY MEDICAL SERVICES COORDINATOR Office Visit [facility] [address] [place] [address] Jitendra Fontenot MD [address] [employer] [address] [place] [address] Health Maintenance Due Date Last [...] of 2) 2019 INFLUENZA VACCINE (#1) 2025 Procedures Procedure Name Priority Date/Time Associated Diagnosis Comments BASIC METABOLIC PANEL Routine 03/08/2025 7:41 AM CDT CBC WITH AUTODIFFERENTIAL Routine 2024 7:40 AM CDT from Last 3 Months Results * BASIC METABOLIC PANEL (03/08/2025 7:41 AM CDT) Blood Jitendra Fontenot MD CHEMISTRY ORDERABLES Final Resu lt * CBC WITH AUTODIFFERENTIAL (03/08/2025 7:40 AM CDT) Blood us Jitendra Fontenot MD HEMATOLOGY ORDERABLES Final Res ult from Last 3 Months Insurance BCBS OUT OF STATE RX [employer] RX [employer] Medicaid RX [employer] Commercial [facility] OUT OF STATE Care Teams Gymnastic Teacher Relationship Specialty Start Date End Date Kodak Krueger MD [address] [place] [address] PCP - General Internal Medicine 05/26/16
== END 2025-03-23 10:04 | disposition home or self-care (01) ==
PROVIDERS: PCP Internal Medicine; Visit Provider Internal Medicine Hematology & Oncology
DX: C83.00 Small cell B-cell lymphoma, unspecified site (principal)
CPT/HCPCS: 71260; 74177; Q9967